=== PATIENT | female | born 1995 | race Caucasian/White ===

== ENCOUNTER 2024-09-23 14:53 | Outpatient (AMB) | payer BC, SELFPAY ==
--- NOTE | 2024-09-23 15:21 | OBCLNT_ITS ---
Vital Signs 09/23/24 15:28 09/23/24 15:36 Height 1.6 m Height Method Stated Weight 101.661 kg Weight Measurement Method Standing Scale BMI 39.6 BP 149/89 H 143/89 H Blood Pressure Source Automatic Cuff Automatic Cuff Blood Pressure Location Right Upper Arm Right Upper Arm Position Sitting Sitting Respiration 20 Pulse 83 Pulse Source Monitor Temp 98.6 F Temp Source Temporal Artery Scan Pulse Oximetry (%) 99 Oxygen Delivery Method Room Air Allergies/Home Meds Allergies & Medications Allergies No Known Allergies Allergy (Verified 09/23/24 15:30) Medication Reconciliation levothyroxine 50 mcg tablet (Synthroid) 50 mcg PO QDAY 09/23/24 [History Confirmed 09/23/24] ggujnqmi-pdg-eekrz 120 mcg-dha 25 mg-herb no.293 66.7 mg chew tablet (Alive Premium ) tab PO 09/23/24 [History Confirmed 09/23/24] ondansetron HCl 4 mg tablet 4 mg PO Q6H PRN nausea and vomiting #30 tabs 09/25/24 [Rx] Intake Visit Data Collection New Patient or Established: New Patient (never been to [facility]) Reason for Visit:: Initial OB visit Do You Feel Safe at Home: Yes Authorities Contacted: N/A PCP or OBGYN visit in last 3 months: Yes Last menstrual period: 07/05/24 Pain Present Currently: Yes Pain Location: Back Pain scale:: 5 Smoking Status Smoking Status: Never smoker Questionnaires Covid-19 Vaccine Questionnaire Has patient been vacinated for Covid-19 Have you been vacinated for Covid-19: Yes PHQ-9 PHQ-2 Over the last 2 weeks, how often have you been bothered by any of the following problems? 1. Little interest or pleasure in doing things: not at all 2. 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 turning 5 in 03/20 Tobacco History Smoking Status: Never smoker Alcohol History Alcohol Intake: Never Domestic Abuse History Do You Feel Safe at Home: Yes Past Medical History Past Medical History Have you ever been diagnosed with any of the following: Respiratory Problems Asthma: No Bronchitis: No Sleep Apnea: No Stomache/Intestinal Problems Gall Bladder Disease: Yes (History of multiple gallstones and gallbladder removed) Obesity: Yes Genital/Urinary Problems Kidney Stones: Yes (Multiple admissions for kidney stones last ) Reproductive Problems Breast Cancer: No Endometriosis: No Fibroids: No Genital Herpes: No Gonorrhea: No Pelvic Inflammatory Disease: No Polycystic Ovarian Syndrome: No Previous Pregnancies: Yes ( x 1 in February 2020 at 37 weeks for elevated blood pressure fe) Syphilis: No Uterine Prolapse: No Endocrine Problems Diabetes Mellitus Type 2: No Hypothyroidism: Yes (After partial thyroidectomy) Parathyroid Disease: Yes (Has had 1 or 2 parathyroid glands removed) Blood Problems Anemia: No Psychologic Problems Anxiety: Yes Other Problems Hospitalization: Yes (For , hyperemesis, gallstones, multiple kidney stones, PTH Dx) Surgical History Cholecystectomy: Yes Thyroidectomy: Yes (Partial) Additional Surgical History: and partial prior parathyroidectomy History of Present Illness HPI Narrative The patient is a 29-year-old -0-0-1 history of in 2019 who used to see me in [place]. The patient had a complicated first with hyperemesis requiring IV fluids. She had multiple admissions for gallstone attacks and kidney stone attacks. I ended up diagnosing her with parathyroid disease. She has since had some type of right parathyroidectomy. I have no reports today. She is on Synthroid 50 mcg a day labetalol 200 twice a day. She saw Sarah Reyes in [place] two weeks ago and I have no records. Dr. Haas is her thyroid doctor. She also was seeing a Dr. Faustin at [facility] who is some type of ENT and was going to perform type of some type of surgery. Patient is talking today in a very hoarse voice she states that one of her parathyroids is putting pressure on her esophagus. She states that her vocal cords are strained. They now do not want to do surgery until after her . The patient is only 12 weeks . OB Ultrasound Indication Indication: Size and dates, viability OB Ultrasound Ultrasound technique: transvaginal Gestational sac assessment: Presence, location, size, shape: Intrauterine with a crown-rump length of 6.09 cm corresponding to 12 weeks 4 days EDC of 04/05/2025 OB Initial Visit Menstrual History Menstrual reliability: definite Flow: heavy Menstrual regularity: regular Monthly: Yes Age at menarche: 13 On control pills at conception: No Date of positive home test: 08/20/24 OB History : 2 Para: 1 # of Living Children: 1 Delivery History 1st : Child's name: [email or web address] date: 03/25/20 sex: female Gestational age at delivery (weeks): 37 Delivery type: weight (lbs): 2721.554 g Delivery complications: Elevated blood pressure inability to get patient into labor History of depression before or after : No Infection History & Risk Evaluation History of STDs: none HIV risk evaluation: low risk Hepatitis B risk evaluation: low risk Patient or partner has history of Genital Herpes: No Varicella/chicken pox status: immunized Genetic Screening & History Genetic Screening/Teratology Counseling - Includes patient, baby's father, or anyone in either family with: 1. Patient's age 35 years or older as of estimated date of delivery: No 2. Thalassemia (Greenlandic, North Korean, Mediterranean, or Background); MCV less than 80: No 3. Neural Tube Defect (Meningomyelocele, Spina Bifida, or Anencephaly): No 4. Congenital Heart Defect: No 5. Down Syndrome: No 6. Wesly-Sachs (Ashkenazi Religion, Cajun, Haitian [place]is[place]): No 7. Quintin Disease (Ashkenazi Religion): No 8. Familial Dysautonomia (Ashkenazi Religion): No 9. Sickle Cell Disease or Trait (): No 10. Hemophilia or other blood disorders: No 11. Muscular Dystrophy: No 12. Cystic Fibrosis: No 13. Craighead's Chorea: No 14. Mental Retardation/Autism: No 15. Other inherited genetic or chromosomal disorder: No 16. Maternal Metabolic Disorder (EG,TYPE 1 Diabetes, PKU): No 17. Patient or baby's father had a child with defects not listed above: No 18. Recurrent loss or a stillbirth: No 19. Medications (including supplements, vitamins, herbs or otc drugs)/illicit/recreational drugs/alcohol since last menstrual period: No 20. Any other: No Infection History 1. Live with someone with TB or exposed to TB: No 2. Rash or viral illness since last menstrual period: No 3. Hepatitis B,C: No Other (see comments) Source: [employer] Exam General Limitations: physical limitation (Difficult speaking secondary to extreme hoarseness.) General Appearance: alert, cooperative, healthy appearing and well developed Neck Neck exam: Present normal inspection, full ROM and trachea midline Chest Chest inspection: Present normal inspection and symmetric chest wall rise Resp Respiratory exam: Present normal lung sounds bilaterally Card Cardiovascular exam: Present regular rate, normal rhythm and normal heart sounds Abdominal Abdominal exam: Present soft and normal bowel sounds Psych Psychiatric exam: Present normal affect and normal mood Skin Skin exam: Present warm, dry, intact and normal color Assessment & Plan Diagnosis / Problem List (1) : Status: Acute Qualifiers: Weeks of gestation: 12 weeks Qualified Code(s): Z3A.12 - 12 weeks gestation of Assessment and Plan: Patient will be comanaged with [facility]. Stat referral sent to Dr. Esparza in [place]. Patient is nauseous and Zofran sent (2) Hyperparathyroidism: Status: Acute Assessment and Plan: All labs checked. Patient has a an endocrine doctor and an ENT. Need to coordinate care with them. (3) Hypothyroidism affecting : Status: Acute Qualifiers: Trimester: first trimester Qualified Code(s): O99.281 - Endocrine, nutritional and metabolic diseases complicating , first trimester; E03.9 - Hypothyroidism, unspecified Assessment and Plan: All labs checked. Coordinate care with endocrine and ENT. Patient is on Synthroid 50 mg p.o. daily. (4) Chronic hypertension affecting : Status: Acute Assessment and Plan: Labetalol 200 twice daily. Patient taking blood pressure. Off work now for the remainder of due to her high her parathyroidism with compression of esophagus, her vocal cord dysfunction, and her chronic hypertension on medication. Additional Plan Follow Up: 4 Weeks Office Procedures OB Clinic LOC & Office Proc's Nursing/Assessment Patient Status: Initial/New Patient OB Clinic Nursing Assessment: BP Monitoring, Medication Reconciliation, Update PMH in EMR and Vital Signs OB Clinic Coordination of Care: Complex Care and Chronic Disease 1-5, Education Complex Pt/Fam, Consent,records obtained, informed consent, Lab and Imaging orders, Results/Orders obtained and Staff clarify orders New Patient Charge New Patient Point Assignment: [id number] New Patient Point Charge: OLIVER FILTER OPERATOR Level 4 ([id number])
[2024-09-23 15:28] VITALS: BP 149/89; PULSE 83; RESP 20; TEMP 37; O2SAT 99; BMI 39.6
[2024-09-23 15:36] VITALS: BP 143/89
== END 2024-09-23 17:02 | disposition home or self-care (01) ==
PROVIDERS: Supervising Provider Obstetrics & Gynecology; Visit Provider Obstetrics & Gynecology
DX: O09.291 Supervision of pregnancy with other poor reproductive or obstetric history, first trimester (principal); O09.891 Supervision of other high risk pregnancies, first trimester; Z3A.12 12 weeks gestation of pregnancy; O10.911 Unspecified pre-existing hypertension complicating pregnancy, first trimester; O34.219 Maternal care for unspecified type scar from previous cesarean delivery; O99.281 Endocrine, nutritional and metabolic diseases complicating pregnancy, first trimester; E89.0 Postprocedural hypothyroidism; E21.3 Hyperparathyroidism, unspecified; Z87.59 Personal history of other complications of pregnancy, childbirth and the puerperium; Z90.89 Acquired absence of other organs; Z79.890 Hormone replacement therapy
CPT/HCPCS: 99204; G0463

== ENCOUNTER 2024-10-20 10:54 | Outpatient (AMB) | payer BC, SELFPAY ==
[2024-10-20 11:43] VITALS: BP 116/72; PULSE 101; RESP 22; TEMP 36.7; O2SAT 97; BMI 39.2
--- NOTE | 2024-10-20 11:43 | AMB.OBVISIT ---
Vital Signs 10/20/24 11:43 Height 1.6 m Height Method Stated Weight 100.414 kg Weight Measurement Method Standing Scale BMI 39.2 BP 116/72 Blood Pressure Source Automatic Cuff Blood Pressure Location Right Upper Arm Position Sitting Respiration 22 H Pulse 101 H Pulse Source Monitor Temp 98.1 F Temp Source Oral Pulse Oximetry (%) 97 Oxygen Delivery Method Room Air Allergies/Home Meds Allergies & Medications Allergies No Known Allergies Allergy (Verified 10/20/24 11:44) Medication Reconciliation levothyroxine 50 mcg tablet (Synthroid) 50 mcg PO QDAY 09/23/24 [History Confirmed 10/20/24] iurerase-mwa-szzlg 120 mcg-dha 25 mg-herb no.293 66.7 mg chew tablet (Alive Premium ) tab PO 09/23/24 [History Confirmed 10/20/24] ondansetron HCl 4 mg tablet 4 mg PO Q6H PRN nausea and vomiting #30 tabs 09/25/24 [Rx Confirmed 10/20/24] ondansetron HCl 4 mg tablet 4 mg PO Q6H PRN nausea and vomiting #60 tabs 10/08/24 [Rx Confirmed 10/20/24] metronidazole 0.75 % (37.5 mg/5 gram) vaginal gel 1 appful vaginal QDAY 5 days #70 grams 10/20/24 [Rx] ondansetron 4 mg disintegrating tablet 4 mg PO Q6H PRN nausea and vomiting #90 tabs 10/20/24 [Rx] Intake Visit Data Collection New Patient or Established: Established Patient (seen at [facility] within 3 years) Reason for Visit:: CARE Seen by Clinical Staff ONLY (RN/MA): No Scrum Product Owner Required: No Do You Feel Safe at Home: Yes Authorities Contacted: N/A PCP or OBGYN visit in last 3 months: Yes Hx Now: Yes Are you currently on any form of Control: No Pain Present Currently: Yes Pain Location: Back Pain Scale Used: Ribeiro-Rowell/Numerical Pain scale:: 4 Smoking Status Smoking Status: Never smoker Questionnaires Covid-19 Vaccine Questionnaire Has patient been vacinated for Covid-19 Have you been vacinated for Covid-19: Yes PHQ-9 PHQ-2 Over the last 2 weeks, how often have you been bothered by any of the following problems? 1. Little interest or pleasure in doing things: not at all 2. Feeling down, depressed, or hopeless: not at all Total score: 0 PHQ-9 3. Trouble falling or staying asleep, or sleeping too much: Not at all 4. Feeling tired or having little energy: Not at all 5. Poor appetite or overeating: Not at all 6. Feeling bad about yourself - or that you are a failure or have let yourself or your family down: Not at all 7. Trouble concentrating on things, such as reading the newspaper or watching television: Not at all 8. Moving or speaking so slowly that other people could have noticed? - Or the opposite - being so fidgety or restless that you have been moving around a lot more than usual: not at all Source: Developed by Drs. Rafa Almaraz, Otilia Rea, Bello Jacques and colleagues, with an educational titi from [employer]. 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 turning 5 in 03/20 Tobacco History Smoking Status: Never smoker Alcohol History Alcohol Intake: Never Domestic Abuse History Do You Feel Safe at Home: Yes HEDGE FUND PRINCIPAL: Past Medical History Past Medical History: Yes Hx Hypothyroidism (After partial thyroidectomy), No Hx Breast Cancer, No Hx Anemia, No Hx Diabetes Mellitus Type 2 and No Hx Polycystic Ovarian Syndrome Additional Operations/Hospitalizations (year & reason): . Cholecystectomy.. Partial thyroidectomy. Parathyroidectomy. Other Relevant History: Anxiety. -induced hypertension. Chronic hypertension. Hypothyroidism. Parathyroid disease. Some type of weak vocal cord strain versus enlarged parathyroid causing the patient to be hoarse. Seeing a specialist at [facility] for her parathyroids. Seeing an corporate financial analyst for her thyroid and parathyroid condition. History of Present Illness HPI Narrative The patient is a 29-year-old -0-0-1 history of at 37 weeks in [place]. She is to be my patient. Her daughter is 5. She had a complicated with hyperemesis IV fluids. She had multiple admissions for gallstones and kidney stones. She eventually was diagnosed with a parathyroid disease by myself. She has since had a partial thyroidectomy and some of her parathyroid glands removed. I have no records today. She has had her gallbladder removed. She is seeing a specialist at [facility] for a parathyroid. She talks in a whisper and has a very hoarse voice. Something about her vocal cords being pulled apart. She is to have some type of parathyroid mass pushing in her esophagus per patient. Again I have no records. She has chronic hypertension. She is on labetalol. She needs to be comanaged with maternal- medicine. She is on Zofran ODT for nausea and vomiting Care OB Visit Log OB Flowsheet Initial Weight: Not Recorded Date <del>?</del> EGA Weight BP Alb Glu CTX Pres Fundal ht FHR Mov Dilation Station Effacement Hx Notes Visit Note 10/20/24 <del>?</del> 16w 3d 100.414 kg 116/72 155 active Patient needs a refill on Zofran. She is on labetalol 200 twice daily for blood pressure. And states most of her blood pressures are in the normal range. She is off work on bedrest. She has not received an appointment for Dr. Esparza for maternal- medicine. She states she is called and this is getting authorized. Plus flutter. No vaginal bleeding or loss of fluids. Patient is still speaking with a quiet hoarse voice today. WAYNE Calculator Estimated Delivery Date Method Current WG Current Estimate 04/03/25 Ultrasound #1 16w 3d Other Estimates 04/11/25 LMP (Uncertain) 15w 2d Expected Delivery Route/Plan 29-year-old -0-0-1 previous x 1 for repeat Specific Issue/Plans 1. Previous for repeat 2. Hypothyroid secondary to partial thyroidectomy on medication 3. History of hyperparathyroidism status post removal of some of her parathyroid glands. Sees a specialist at [facility]. May need further surgery this . Parathyroid, calcium, phosphorous, thyroid numbers are normal at the beginning of this . 4. Chronic hypertension. On labetalol 200 mg p.o. twice daily at 14 weeks of . Office Procedures OB Clinic LOC & Office Proc's Nursing/Assessment Patient Status: Established Patient OB Clinic Nursing Assessment: Medication Reconciliation, Update PMH in EMR and Vital Signs OB Clinic Coordination of Care: Complex Care and Chronic Disease 1-5, Consent,records obtained, informed consent, Education Simp Pt/Fam, Lab and Imaging orders, Results/Orders obtained and Staff clarify orders Special Needs: Heart tones Established Patient Charge Established Patient Point Assignment: 135 Established Patient Point Charge: EP Level 4 (120-155) Assessment & Plan Diagnosis / Problem List (1) : Status: Acute Qualifiers: Weeks of gestation: 16 weeks Qualified Code(s): Z3A.16 - 16 weeks gestation of Assessment and Plan: Patient reports vaginal odor and discharge. History of BV. Will order MetroGel. For MFM referral. And comanagement. Need to get a hold of all her labs. (2) Chronic hypertension affecting : Status: Acute Assessment and Plan: Continue labetalol 200 twice daily (3) Hypothyroidism affecting : Status: Acute Qualifiers: Trimester: second trimester Qualified Code(s): O99.282 - Endocrine, nutritional and metabolic diseases complicating , second trimester; E03.9 - Hypothyroidism, unspecified Assessment and Plan: Continue Synthroid (4) Hyperparathyroidism: Status: Acute Assessment and Plan: Continue to follow-up with [facility] doctors sees her corporate financial analyst later this week.
== END 2024-10-20 12:05 | disposition home or self-care (01) ==
LOC: HODSOBC 10:54
PROVIDERS: Supervising Provider Obstetrics & Gynecology; Visit Provider Obstetrics & Gynecology
DX: O09.292 Supervision of pregnancy with other poor reproductive or obstetric history, second trimester (principal); O09.892 Supervision of other high risk pregnancies, second trimester; Z3A.16 16 weeks gestation of pregnancy; O34.219 Maternal care for unspecified type scar from previous cesarean delivery; O10.912 Unspecified pre-existing hypertension complicating pregnancy, second trimester; O99.282 Endocrine, nutritional and metabolic diseases complicating pregnancy, second trimester; E21.3 Hyperparathyroidism, unspecified; E89.0 Postprocedural hypothyroidism; Z79.899 Other long term (current) drug therapy
CPT/HCPCS: 99214; G0463

== ENCOUNTER 2024-10-28 14:56 | Outpatient (AMB) | payer BC, SELFPAY ==
[2024-10-28 15:14] VITALS: BP 130/85; PULSE 92; RESP 17; TEMP 36.8; O2SAT 98; BMI 39.4
--- NOTE | 2024-10-28 15:16 | OBCLNT_ITS ---
Vital Signs 10/28/24 15:14 10/28/24 15:18 Height 1.6 m Height Method Stated Weight 100.868 kg Weight Measurement Method Standing Scale BMI 39.4 BP 130/85 H 130/85 H Blood Pressure Source Automatic Cuff Blood Pressure Location Right Upper Arm Position Sitting Respiration 17 17 Pulse 92 92 Pulse Source Monitor Temp 98.2 F 98.2 F Temp Source Temporal Artery Scan Pulse Oximetry (%) 98 98 Oxygen Delivery Method Room Air Allergies/Home Meds Allergies & Medications Allergies No Known Allergies Allergy (Verified 10/28/24 15:15) Medication Reconciliation levothyroxine 50 mcg tablet (Synthroid) 50 mcg PO QDAY 09/23/24 [History Confirmed 10/28/24] cyonozro-wxs-eytmv 120 mcg-dha 25 mg-herb no.293 66.7 mg chew tablet (Alive Premium ) tab PO 09/23/24 [History Confirmed 10/28/24] ondansetron HCl 4 mg tablet 4 mg PO Q6H PRN nausea and vomiting #30 tabs 09/25/24 [Rx Confirmed 10/28/24] ondansetron HCl 4 mg tablet 4 mg PO Q6H PRN nausea and vomiting #60 tabs 10/08/24 [Rx Confirmed 10/28/24] ondansetron 4 mg disintegrating tablet 4 mg PO Q6H PRN nausea and vomiting #90 tabs 10/20/24 [Rx Confirmed 10/28/24] Intake Visit Data Collection New Patient or Established: Established Patient (seen at [facility] within 3 years) Reason for Visit:: ER FOLLOW UP Seen by Clinical Staff ONLY (RN/MA): No Solid Waste Collector Required: No Do You Feel Safe at Home: Yes Authorities Contacted: N/A PCP or OBGYN visit in last 3 months: Yes Hx Now: Yes Are you currently on any form of Control: No Pain Present Currently: Yes Pain Location: Back Pain Scale Used: Ribeiro-Rowell/Numerical Pain scale:: 4 Smoking Status Smoking Status: Never smoker Questionnaires Covid-19 Vaccine Questionnaire Has patient been vacinated for Covid-19 Have you been vacinated for Covid-19: Yes PHQ-9 PHQ-2 Over the last 2 weeks, how often have you been bothered by any of the following problems? 1. Little interest or pleasure in doing things: not at all 2. Feeling down, depressed, or hopeless: not at all Total score: 0 PHQ-9 3. Trouble falling or staying asleep, or sleeping too much: Not at all 4. Feeling tired or having little energy: Not at all 5. Poor appetite or overeating: Not at all 6. Feeling bad about yourself - or that you are a failure or have let yourself or your family down: Not at all 7. Trouble concentrating on things, such as reading the newspaper or watching television: Not at all 8. Moving or speaking so slowly that other people could have noticed? - Or the opposite - being so fidgety or restless that you have been moving around a lot more than usual: not at all 9. Thoughts that you would be better off or of hurting yourself in some way: Not at all Total score: 0 If you checked off any problems, how difficult have these problems made it for you to do your work, take care of things at home, or get along with other people?: not difficult at all Source: Developed by Drs. Rafa Almaraz, Otilia Rea, Bello Jacques and colleagues, with an educational titi from [employer]. 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 turning 5 in 03/20 Tobacco History Smoking Status: Never smoker Alcohol History Alcohol Intake: Never Domestic Abuse History Do You Feel Safe at Home: Yes CLINICAL ADMINISTRATIVE COORDINATOR: Past Medical History Past Medical History: Yes Hx Hypothyroidism (After partial thyroidectomy), No Hx Breast Cancer, No Hx Anemia, No Hx Diabetes Mellitus Type 2 and No Hx Polycystic Ovarian Syndrome Care OB Visit Log OB Flowsheet Initial Weight: Not Recorded Date -?-?-?-?-?-?-?-?-?-?-?-?- EGA Weight BP Alb Glu CTX Pres Fundal ht FHR Mov Dilation Station Effacement Hx Notes Visit Note 10/20/24 -?-?-?-?-?-?-?-?-?-?-?-?- 16w 3d 100.414 kg 116/72 155 active Patient needs a refill on Zofran. She is on labetalol 200 twice daily for blood pressure. And states most of her blood pressures are in the normal range. She is off work on bedrest. She has not received an appointment for Dr. Esparza for maternal- medicine. She states she is called and this is getting authorized. Plus flutter. No vaginal bleeding or loss of fluids. Patient is still speaking with a quiet hoarse voice today. 10/28/24 -?-?-?-?-?-?-?-?-?--?-?-?- 17w 4d 100.868 kg 130/85 130/85 143 active Nausea vom iting better. Blood pressure better on labetalol. Patient states she is leaking. Went to [place] and did not get any answers. Sent to ER to ru le out ruptured membranes. Need AmniSure and vaginitis panel. WAYNE Calculator Estimated Delivery Date Method Current WG Current Estimate 04/03/25 Ultrasound #1 17w 4d Other Estimates 04/11/25 LMP (Uncertain) 16w 3d Comments: LMP 07/05/23 Expected Delivery Route/Plan 29-year-old -0-0-1 previous x 1 for repeat Specific Issue/Plans 1. Previous for repeat 2. Hypothyroid secondary to partial thyroidectomy on medication 3. History of hyperparathyroidism status post removal of some of her parathyroid glands. Sees a specialist at [facility]. May need further surgery this . Parathyroid, calcium, phosphorous, thyroid numbers are normal at the beginning of this . 4. Chronic hypertension. On labetalol 200 mg p.o. twice daily at 14 weeks of . Office Procedures OB Clinic LOC & Office Proc's Nursing/Assessment Patient Status: Established Patient OB Clinic Nursing Assessment: Medication Reconciliation, Update PMH in EMR and Vital Signs OB Clinic Coordination of Care: Complex Care and Chronic Disease 1-5, Consent,records obtained, informed consent, Education Simp Pt/Fam, Results/Orders obtained and Staff clarify orders Special Needs: Heart tones Established Patient Charge Established Patient Point Assignment: 120 Established Patient Point Charge: EP Level 4 (120-155) Assessment & Plan Diagnosis / Problem List (1) Chronic hypertension affecting : Status: Acute (2) Hypothyroidism affecting : Status: Acute Qualifiers: Trimester: second trimester Qualified Code(s): O99.282 - Endocrine, nutritional and metabolic diseases complicating , second trimester; E03.9 - Hypothyroidism, unspecified (3) Hyperparathyroidism: Status: Acute (4) : Status: Acute Qualifiers: Weeks of gestation: 17 weeks Qualified Code(s): Z3A.17 - 17 weeks gestation of
[2024-10-28 15:18] VITALS: BP 130/85; PULSE 92; RESP 17; TEMP 36.8; O2SAT 98
== END 2024-10-28 16:18 | disposition home or self-care (01) ==
LOC: HODSOBC 14:56
PROVIDERS: PCP Obstetrics & Gynecology; Referring Provider Obstetrics & Gynecology; Supervising Provider Obstetrics & Gynecology; Visit Provider Obstetrics & Gynecology
DX: O09.292 Supervision of pregnancy with other poor reproductive or obstetric history, second trimester (principal); O34.219 Maternal care for unspecified type scar from previous cesarean delivery; O09.892 Supervision of other high risk pregnancies, second trimester; O10.912 Unspecified pre-existing hypertension complicating pregnancy, second trimester; O99.282 Endocrine, nutritional and metabolic diseases complicating pregnancy, second trimester; E21.3 Hyperparathyroidism, unspecified; E89.0 Postprocedural hypothyroidism; Z3A.17 17 weeks gestation of pregnancy; Z79.890 Hormone replacement therapy; Z79.899 Other long term (current) drug therapy
CPT/HCPCS: 99214; G0463

== ENCOUNTER 2024-10-28 15:58 | Emergency (ER) | payer BC, SELFPAY ==
[2024-10-28 16:10] VITALS: BP 146/94; PULSE 110; RESP 20; TEMP 36.9; O2SAT 99; BMI 39.3
--- NOTE | 2024-10-28 16:19 | XR_ITS ---
Examination: Complete OB ultrasound greater than 14 weeks Date and time of exam: October 28, 2024 1637 hours INDICATIONS: Leaking amniotic fluid beginning 2 days ago Findings: Viable intrauterine single fetus with single amniotic sac presentation variable Cardiac motion 158 BPM Placenta posterior grade 2 The umbilical cord insertion seen Amniotic fluid index 10.7 cm Lateral view obscured by bowel gas Left ovary 3.6 cm arterial flow. Composite estimated gestational age based on BPD, head circumference, abdominal circumference, femur length is 18 weeks 1 day Estimated weight 229 g. Survey of intracranial anatomy, spinal anatomy, abdominal anatomy, four-chamber heart performed with no abnormalities identified. Impression: Viable intrauterine gestation variable presentation Estimated gestational age 18 weeks 1 day. Amniotic fluid index 10.7 cm.
[2024-10-28 16:34] LABS: Collection Type, Urine Clean Catch
[2024-10-28 16:42] LABS: Basophils % (Auto) 0 % (0-2.5); Eosinophils # (Auto) 0.1 Thou/mm3 (0.0-0.5); Eosinophils % (Auto) 1 % (0-10); Hematocrit 34.1 % (36.0-46.0); Hemoglobin 12.3 g/dL (12.0-16.0); Immature Granulocytes % (Auto) 0 % (0-0); Immature Granulocytes Auto 0.02 Thou/mm3 (0.00-0.00); Lymphocytes % (Auto) 25 % (10-50); Mean Corpuscular HGB Conc 36.1 g/dl (31.0-37.0); Mean Corpuscular Hemoglobin 31.5 pg (25.0-35.0); Mean Corpuscular Volume 87 fL (80-100); Monocytes # (Auto) 0.5 Thou/mm3 (0.0-0.8); Monocytes % (Auto) 6 % (0-12); Neutrophils # (Auto) 5.5 Thou/mm3 (1.8-7.7); Neutrophils % (Auto) 68 % (37-80); Nucleated Red Blood Cell % 0 /100 WBC (0); Platelet Count 276 Thou/mm3 (140-440); RDW Standard Deviation 40.8 fL (36.4-46.3); White Blood Count 8.2 Thou/mm3 (3.6-11.0)
[2024-10-28 16:47] LABS: Bilirubin,Urine Negative (Negative); Blood,Urine Negative (Negative); Color,Urine Yellow (Lt Yel-Yel); Glucose, Urine Trace (Negative); Ketones,Urine Trace (Negative); Leukocyte Esterase,Urine Positive (Negative); Nitrite,Urine Negative (Negative); PH,Urine 6.5 (5.0-7.0); Protein,Urine Trace (Neg - Trace); RBC,Urine 5 /hpf (0-3); Specific Gravity,Urine 1.026 (1.001-1.035); Squamous Epithelial Cell,Urine 7 /hpf (0-5); WBC,Urine 14 /hpf (0-5)
[2024-10-28 16:59] LABS: Clarity,Urine Hazy (Clear/Hazy)
[2024-10-28 17:54] LABS: Alanine Aminotransferase 92 U/L (10-49); Albumin, Serum 4.4 gm/dL (3.5-5.0); Albumin/Globulin Ratio 2.1 (1.2-2.2); Alkaline Phosphatase 65 U/L (46-116); Anion Gap 13 (7-16); Aspartate Amino Transferase 64 U/L (0-34); BUN/Creatinine Ratio 17 Ratio (12-20); Beta HCG,Quantitative 17099 mIU/mL (<5.0); Bilirubin,Total 0.3 mg/dL (0.3-1.2); Blood Urea Nitrogen 10 mg/dL (9-23); Calcium 8.6 mg/dL (8.3-10.6); Calcium (Corrected) 8.6 mg/dL (8.5-10.1); Chloride 106 mMol/L (98-107); Creatinine (Component) 0.6 mg/dL (0.6-1.3); Estimated Creatinine Clearance 156.6 mL/min (>60); Globulin 2.1 gm/dL (2.3-3.5); Glucose 75 mg/dL (74-106); Osmolality,Calculated 282 (275-295); Potassium 3.8 mMol/L (3.4-5.1); Sodium 143 mMol/L (136-145); Total Protein 6.5 gm/dL (5.7-8.2); eGFR > 60 See Note
[2024-10-28 18:08] LABS: ROM Kit Lot # 578010271
[2024-10-28 18:09] LABS: ROM Swab Mixed By: SAUET; Rupture of Fetal Membranes Negative (Negative); Swb Mxed in Solvent 1 min? Yes
--- NOTE | 2024-10-28 18:37 | PD.GYNCONS ---
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 Casas Primary Care Provider: Physician No Primary/Family Consult Narrative Reason for consult: early complication (Possible ruptured membranes) History of present illness: The patient is a 29-year-old -0-0-1 at 17-5/7 weeks who was seen at clinic today. She thought she might have ruptured her membranes and actually went to the [facility] emergency room yesterday on 10/27/2024. They did not do an AmniSure or a pelvic exam but they did an ultrasound and told her the fluid was normal . I do not have any records. As the patient was still reporting leaking fluid today and she is under 20 weeks I sent her to the emergency room to get evaluated. In the emergency room, the patient had an ultrasound performed revealing the amniotic fluid index to be 10.7 ,cardiac motion was noted and the placenta was posterior and away from the cervical os. Two labor and delivery nurses came down to see the patient and performed an AmniSure and a vaginal swab for vaginitis. The AmniSure is negative. We will be discharging the patient home. cc:: cc: Review of Systems Review of Systems Systems Reviewed: All systems reviewed, normal except as documented Narrative Review of Systems: Patient reports good movement no contractions or cramping no vaginal bleeding. She is reporting leaking of clearish type fluid for about 2 days. No fevers chills nausea vomiting diarrhea. Past Medical History Past Medical History GASTROINTESTINAL: Positive Gall Bladder Disease (History of gallstones) GENITOURINARY: Positive Renal Disease and Kidney Stones (Episodes of kidney stones in the past) REPRODUCTIVE: Positive Previous Pregnancies ( x 1) ENDOCRINE: Positive Hypothyroidism (Status post partial thyroidectomy) and Parathyroid Disease (Status post post removal of parathyroid glands) Surgical History SURGICAL: Positive Endocrine Surgery (Parathyroidectomy), Thyroidectomy (Partial thyroidectomy), Abdominal Surgery ( section x 1) and Hx Cholecystectomy Past Medical History Comments PMH COMMENT: Patient is worse from some type of vocal cord strain from parathyroid surgery in past. She is being followed by an ENT at [facility] and an primary care physician as an outpatient. 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 Speculum exam was performed revealing yellowish discharge with no odor. Speculum exam not suggestive of ruptured membranes AmniSure performed. Vaginitis panel collected. Cervix appears closed pelvic exam deferred Detailed Pelvic Exam Uterus: Present enlarged (20-week size) Routine Extremities Exam Extremities: Present edema (1+ edema) [employer]LE[employer]IV[employer]ITY REGISTRAR - Results Labs 10/28/24 16:32 10/28/24 16:32 Labs: Short CBC 10/28/24 Range/Units 16:32 WBC 8.2 (3.6-11.0) Thou/mm3 Hgb 12.3 (12.0-16.0) g/dL Hct 34.1 L (36.0-46.0) % Plt Count 276 (140-440) Thou/mm3 BMP 10/28/24 16:32 Sodium 143 Potassium 3.8 Chloride 106 Carbon Dioxide 24.0 BUN 10 Creatinine 0.6 Glucose 75 Calcium 8.6 Liver Function 10/28/24 Range/Units 16:32 Total Bilirubin 0.3 (0.3-1.2) mg/dL AST 64 H (0-34) U/L ALT 92 H (10-49) U/L Alkaline Phosphatase 65 (46-116) U/L Albumin 4.4 (3.5-5.0) gm/dL Urine 10/28/24 Range/Units 16:24 Urine Color Yellow (Lt Yel-Yel) Urine Clarity Hazy (Clear/Hazy) Urine pH 6.5 (5.0-7.0) Ur Specific [place] 1.026 (1.001-1.035) Urine Protein Trace (Neg - Trace) Urine Glucose (UA) Trace (Negative) Imaging and Cardiology US - abdomen: Additional comments: Abdominal ultrasound reveals viable intrauterine in variable presentation cardiac motion 158 bpm placenta is posterior grade 2 amniotic fluid index 10.7. EFW 229 g corresponding to 18 weeks 1 day. Assessment and Plan Assessment and plan (1) Chronic hypertension affecting : Status: Acute Assessment and plan: Continue labetalol (2) Hypothyroidism affecting : Status: Acute Assessment and plan: Continue Synthroid follow-up with endocrine (3) Hyperparathyroidism: Status: Acute Assessment and plan: Follow-up with ENT at [facility] (4) : Status: Acute Assessment and plan: Ruptured membranes ruled out today. Await vaginitis panel. Discharge home. Follow-up in 4 weeks. (2) Hypothyroidism affecting Qualifiers: Trimester: second trimester Qualified Code(s): O99.282 - Endocrine, nutritional and metabolic diseases complicating , second trimester; E03.9 - Hypothyroidism, unspecified (4) Qualifiers: Weeks of gestation: 17 weeks Qualified Code(s): Z3A.17 - 17 weeks gestation of
[2024-10-28 18:49] VITALS: BP 136/86; PULSE 81; RESP 14; O2SAT 98
--- NOTE | 2024-10-28 19:08 | EDNOTE_ITS ---
ED General RME/HPI General Chief complaint: General Adult/Misc Complain Stated complaint: Sent from OB, leaking fluid 17wk 4d Time Seen by Provider: 10/28/24 18:20 Arrival date/time: 10/28/24 15:58 Dr. Casas?s Main ED Evaluation: 29-year-old female about 18 weeks presents to the emergency department with leakage of vaginal fluid. Patient began leaking fluid yesterday. She went to [facility] and had an ultrasound. She was told that the amniotic fluid was a little low but otherwise everything was normal. She was told to come back if she continues to leak fluid. Rather than that the patient called her doctor, Dr Morel. Dr. Morel sent her to the emergency department for blood work, urine and ultrasound. Patient is complaining of mild lower back pain but does not know her chronic back pain or new. She has no pelvic cramping type menstrual pain. No vaginal bleeding. Related Data Home Medications ?Medication ?Instructions ?Recorded ?Confirmed levothyroxine 50 mcg tablet 50 mcg PO QDAY 09/23/24 (Synthroid) [id number] 120 mcg-dha 25 tab PO 09/23/2409/18 mg-herb no.293 66.7 mg chew tablet (Alive Premium ) Previous Rx's ?Medication ?Instructions ?Recorded ondansetron HCl 4 mg tablet 4 mg PO Q6H PRN nausea and 09/25/24 vomiting #30 tabs ondansetron HCl 4 mg tablet 4 mg PO Q6H PRN nausea and 10/08/24 vomiting #60 tabs ondansetron 4 mg disintegrating 4 mg PO Q6H PRN nausea and 10/20/24 tablet vomiting #90 tabs nitrofurantoin macrocrystal 100 mg 100 mg PO BID Urina ry tract 10/28/24 capsule infection 7 days #14 caps Allergies Allergy/AdvReac Type Severity Reaction Status Date / Time No Known Allergies Allergy Verified 10/28/24 15:15 Review of Systems Review of Systems Systems Reviewed: All systems reviewed, normal except as documented Past Medical History Past Medical History CARDIAC: Negative Congestive Heart Failure RESPIRATORY: Negative Chronic Obstructive Pulmonary Disease (COPD), Asthma, Br onchitis or Sleep Apnea GASTROINTESTINAL: Positive Gall Bladder Disease (History of gallstones) and Obesity GENITOURINARY: Positive Renal Disease and Kidney Stones (Episodes of kidney stones in the past) REPRODUCTIVE: Positive Previous Pregnancies ( x 1); Negative Breast Cancer, Endometriosis, Fibroids, Genital Herpes, Gonorrhea, Pelvic Inflammatory Disease, Hx Polycystic Ovarian Syndrome, Syphilis or Uterine Prolapse ENDOCRINE: Positive Hypothyroidism (Status post partial thyroidectomy) and Parathyroid Disease (Status post post removal of parathyroid glands); Negative Diabetes Mellitus Type 1 or Diabetes Mellitus Type 2 HEMATOLOGIC: Negative Anemia PSYCHO/SOCIAL: Positive Anxiety OTHER HISTORY: Positive Hospitalization (For , hyperemesis, gallstones, multiple kidney stones, PTH Dx); Negative Breast Cancer Surgical History SURGICAL: Positive Endocrine Surgery (Parathyroidectomy), Thyroidectomy (Partial thyroidectomy), Tonsillectomy, Abdominal Surgery ( section x 1) and Hx Cholecystectomy Social History SMOKING STATUS: Never smoker Past Medical History Comments PMH COMMENT: Patient is worse from some type of vocal cord strain from parathyroid surgery in past. 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 ED Exam Narrative Physical exam: GENERAL APPEARANCE: alert and oriented x 4, well-developed, well-nourished, no acute distress VITALS: All vitals were reviewed and the pulse ox is 98% on room air, which is normal according to my interpretation. HEENT: Normocephalic, atraumatic; pupils equal, round, reactive to light; EOMI; mucous membranes pink, moist; oropharynx clear NECK: Supple LUNGS: CTABL; no wheezes, no rales, no rhonchi HEART: Regular rate, regular rhythm; normal S1, S2; no murmurs ABDOMEN: non distended; soft, gravid, no tenderness, no guarding, no rebound; no masses, no organomegaly, no hernia PELVIC: not performed. BACK: no CVA tenderness EXTREMITIES: atraumatic; no edema NEUROLOGIC: awake; alert and oriented x4; cranial nerves II-XII grossly intact; no focal sensory or motor deficits PSYCHIATRIC: appropriate mood and affect SKIN: warm, dry, normal color; no rashes Course Quality Measures none Orders Category Date Time Status US OB >= 14 weeks Fetus Stat Exams 10/28/24 16:19 Completed ABO/RH Type Stat Lab 10/28/24 16:32 Completed Bacterial Vaginal Panel Stat Lab 10/28/24 18:00 Received Beta HCG,Quantitative Stat Lab 10/28/24 16:32 Completed CBC Stat Lab 06/04/25 16:32 Completed Comprehensive Metabolic Panel Stat Lab 10/28/24 16:32 Completed Rupture of Membranes Stat Lab 10/28/24 18:00 Completed UA [Urinalysis] Stat Lab 10/28/24 16:24 Completed Urine Culture Stat Lab 10/28/24 16:24 Received cefTRIAXone [Rocephin] 1,000 mg Med 10/28/24 19:18 Discontinued Lidocaine 1% 20 ml [Xylocaine 1% 20 ML] 2.1 ml IM X1 cefTRIAXone/D5w 1gm IV premix [Rocephin/D5w 1gm IV Med 10/28/24 19:04 Discontinued premix] 1 gm in 50 ml IV X1 Vital Signs Vital signs: Vital Signs Temperature 98.4 F 10/28/24 16:10 Pulse Rate 110 H 10/28/24 16:10 Respiratory Rate 20 10/28/24 16:10 Blood Pressure 146/94 H 10/28/24 16:10 Pulse Oximetry (%) 99 10/28/24 16:10 Oxygen Delivery Method Room Air 10/28/24 16:10 Discharge Plan Plan Patient Disposition: HOME (Self Care) Discharge Disposition comment: Stable for discharge home Patient condition on transfer: Stable Prescriptions/Referrals Prescriptions/Med Rec: New nitrofurantoin macrocrystal 100 mg capsule 100 mg PO BID 7 Days Qty: 14 0RF Rx Instructions: must administer with a meal/food No Action Alive Premium 120 mcg-25 mg- 66.7 mg tablet,chewable PO levothyroxine [Synthroid] 50 mcg tablet 50 mcg PO QDAY ondansetron HCl 4 mg tablet 4 mg PO Q6H PRN (Reason: nausea and vomiting) Qty: 30 4RF ondansetron 4 mg tablet,disintegrating 4 mg PO Q6H PRN (Reason: nausea and vomiting) Qty: 90 2RF ondansetron HCl 4 mg tablet 4 mg PO Q6H PRN (Reason: nausea and vomiting) Qty: 60 3RF Referrals: Adriel (OB Clinic)Lashay MD [Physician] - 10/29/24 Problem List Clinical Impression: , Urinary tract infection Patient/Caregiver Discharge Instructions Discharge Activity: activity as tolerated Education Materials: Urinary Tract Infections in Women Additional Instructions: Today you were seen in the emergency department for possible leakage of amniotic fluid. When the OB nurses came down they performed a special test called an AmniSure test. This showed that you are not leaking amniotic fluid. Your blood tests were all reassuring, your urine showed a urinary tract infection. You will need to take an antibiotic called nitrofurantoin twice per day for 7 days for that. Have called that prescription into your pharmacy. Dr Morel would like to see you in her office tomorrow. Please call her office in the morning. Please return to the emergency department if you have any worsening or any further medical problems we will help you. Print Language: Tajik Stand Alone Forms: [employer] Award Info., Patient Portal Info Letter MDM Narrative [facility] hospital course: 19:[address] Morel with results of the patient's workup. She says that she sent her OB nurses down and they did an AmniSure test and the patient has not leaking amniotic fluid. Dr Morel said that the patient can be discharged and follow-up in her office tomorrow. Urinalysis shows mild UTI. I treated with 1 g Rocephin here in the emergency department and will write for Macrobid for 7 days at home. Clinical Information Provided by patient Medical Records Reviewed [facility] (Per chart review, patient had an outpatient visit with her OB this afternoon.) Meds/Rx Considered, not Ordered None Labs/Rad/Tests considered, not Ordered None Chronic Illness/Social Conditions which may negatively complicate care or outcome(s)-explain: None or not applicable EKG EKG not done Lab Interpretation Labs: interpreted by me and see narrative above Lab(s) interpretation(s): CBC normal, CMP normal, UA shows UTI. Imaging Imaging interpretation: interpreted by me Radiology reports / interpretation(s): [place] [facility] Report Signed Patient: NYASIA TORRES [facility]. Record#: [id number] Birthdate: 1995 Age/Sex: 29 / F Location: [facility] Attending Dr: Ordering Physician: John (LAURIE)Richar NP Date of Service: 10/28/24 Procedure(s): US OB >= 14 weeks Fetus Accession Number(s): [id number] cc: John SOTO)Richar NP; Benjamin Pulido MD; NO PRIMARY/FAMILY,PHYSICIAN~ Examination: Complete OB ultrasound greater than 14 weeks Date and time of exam: October 28, 2024 1637 hours INDICATIONS: Leaking amniotic fluid beginning 2 days ago Findings: Viable intrauterine single fetus with single amniotic sac presentation variable Cardiac motion 158 BPM Placenta posterior grade 2 The umbilical cord insertion seen Amniotic fluid index 10.7 cm Lateral view obscured by bowel gas Left ovary 3.6 cm arterial flow. Composite estimated gestational age based on BPD, head circumference, abdominal circumference, femur length is 18 weeks 1 day Estimated weight 229 g. Survey of intracranial anatomy, spinal anatomy, abdominal anatomy, four-chamber heart performed with no abnormalities identified. Impression: Viable intrauterine gestation variable presentation Estimated gestational age 18 weeks 1 day. Amniotic fluid index 10.7 cm. Dictated By: Benjamin Pulido MD Signed By: <Electronically signed by Benjamin Pulido MD in OV> 10/28/24 1724 Medication Administration(s) Medication Administration History Discontinued Medications Ceftriaxone Sodium 1,000 mg/ (Lidocaine HCl 2.1 ml) 0 mg IM X1 ONE Stop: 10/28/24 19:19 Last Admin: 10/28/24 19:41 Dose: 1,000 mg Documented By: CB Ceftriaxone Sodium/Dextrose (Rocephin/D5w 1gm Iv Premix) 1 gm in 50 mls @ 100 mls/hr IV X1 ONE Stop: 10/28/24 19:33 see above Diagnosis Differential diagnosis: demise, premature rupture of membranes, vaginitis Most likely dx, and/or detailed dx discussion: , UTI Dispositon Disposition: Discharge Home
[2024-10-28] MEDS: cefTRIAXone 1,000 MG, LIDOCAINE 1% 20 ML 2.1 ML IM (19:41)
== END 2024-10-28 19:53 | disposition home or self-care (01) ==
PROVIDERS: Nurse Practitioner Primary Care; Emergency Provider Emergency Medicine
DX: N39.0 Urinary tract infection, site not specified (principal); O23.42 Unspecified infection of urinary tract in pregnancy, second trimester; Z3A.18 18 weeks gestation of pregnancy
CPT/HCPCS: 36415; 76805; 80053; 81001; 81514; 84112; 84702; 85025; 86900; 86901; 87086; 96372; 99284; J0696; J3490

== ENCOUNTER 2024-11-09 09:02 | Outpatient (AMB) | payer BC, SELFPAY ==
[2024-11-09 09:42] VITALS: BP 138/85; PULSE 114; RESP 18; TEMP 36; O2SAT 98; BMI 39.5
--- NOTE | 2024-11-09 09:42 | AMB.OBVISIT ---
Vital Signs 11/09/24 09:42 Height 1.6 m Height Method Stated Weight 101.151 kg Weight Measurement Method Standing Scale BMI 39.5 BP 138/85 H Blood Pressure Source Automatic Cuff Blood Pressure Location Left Upper Arm Position Sitting Respiration 18 Pulse 114 H Pulse Source Monitor Temp 96.8 F Temp Source Oral Pulse Oximetry (%) 98 Oxygen Delivery Method Room Air Allergies/Home Meds Allergies & Medications Allergies No Known Allergies Allergy (Verified 11/09/24 09:43) Medication Reconciliation levothyroxine 50 mcg tablet (Synthroid) 50 mcg PO QDAY 09/23/24 [History Confirmed 11/09/24] zosxnozn-cdo-gqipp 120 mcg-dha 25 mg-herb no.293 66.7 mg chew tablet (Alive Premium ) tab PO 09/23/24 [History Confirmed 11/09/24] ondansetron HCl 4 mg tablet 4 mg PO Q6H PRN nausea and vomiting #30 tabs 09/25/24 [Rx Confirmed 11/09/24] ondansetron HCl 4 mg tablet 4 mg PO Q6H PRN nausea and vomiting #60 tabs 10/08/24 [Rx Confirmed 11/09/24] ondansetron 4 mg disintegrating tablet 4 mg PO Q6H PRN nausea and vomiting #90 tabs 10/20/24 [Rx Confirmed 11/09/24] ondansetron 4 mg disintegrating tablet 4 mg PO Q6H PRN nausea and vomiting #90 tabs 11/04/24 [Rx Confirmed 11/09/24] Intake Visit Data Collection New Patient or Established: Established Patient (seen at [facility] within 3 years) Reason for Visit:: OBC Seen by Clinical Staff ONLY (RN/MA): No Risk Control Specialist Required: No Do You Feel Safe at Home: Yes Authorities Contacted: N/A PCP or OBGYN visit in last 3 months: Yes Date of Last PCP or OBGYN visit: 10/28/24 Hx Now: Yes Are you currently on any form of Control: No Pain Present Currently: No Pain Scale Used: Ribeiro-Rowell/Numerical Pain scale:: 0 Smoking Status Smoking Status: Never smoker Questionnaires Covid-19 Vaccine Questionnaire Has patient been vacinated for Covid-19 Have you been vacinated for Covid-19: Yes PHQ-9 PHQ-2 Over the last 2 weeks, how often have you been bothered by any of the following problems? 1. Little interest or pleasure in doing things: not at all 2. Feeling down, depressed, or hopeless: not at all Total score: 0 PHQ-9 3. Trouble falling or staying asleep, or sleeping too much: Not at all 4. Feeling tired or having little energy: Not at all 5. Poor appetite or overeating: Not at all 6. Feeling bad about yourself - or that you are a failure or have let yourself or your family down: Not at all 7. Trouble concentrating on things, such as reading the newspaper or watching television: Not at all 8. Moving or speaking so slowly that other people could have noticed? - Or the opposite - being so fidgety or restless that you have been moving around a lot more than usual: not at all 9. Thoughts that you would be better off or of hurting yourself in some way: Not at all Total score: 0 If you checked off any problems, how difficult have these problems made it for you to do your work, take care of things at home, or get along with other people?: not difficult at all Source: Developed by Drs. Rafa Almaraz, Otilia Rea, Bello Jacques and colleagues, with an educational titi from [employer] 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 She is on labetalol 200 twice daily for blood pressure. And states most of her blood pressures are in the normal range. She is off work on bedrest. She has not received an appointment for Dr. Esparza for maternal- medicine. She states she is called and this is getting authorized. Plus flutter. No vaginal bleeding or loss of fluids. Patient is still speaking with a quiet hoarse voice today. 10/28/24 <del>?</del> 17w 4d 100.868 kg 130/85 130/85 143 active Nausea vomiting better. Blood pressure better on labetalol. Patient states she is leaking. Went to [place] and did not get any answers. Sent to ER to rule out ruptured membranes. Need AmniSure and vaginitis panel. 11/09/24 <del>?</del> 19w 2d 101.151 kg 138/85 19 143 active Refill labetalol. Increase to 300 twice daily. Has level 2 ultrasound next week with Dr. Esparza. Reports good movement no contractions no vaginal bleeding has follow-up with her parathyroid doctor coming up. WAYNE Calculator Estimated Delivery Date Method Current WG Current Estimate 04/03/25 Ultrasound #1 19w 2d Other Estimates 04/11/25 LMP (Uncertain) 18w 1d Expected Delivery Route/Plan 29-year-old -0-0-1 previous x 1 for repeat Specific Issue/Plans 1. Previous for repeat 2. Hypothyroid secondary to partial thyroidectomy on medication 3. History of hyperparathyroidism status post removal of some of her parathyroid glands. Sees a specialist at [facility]. May need further surgery this . Parathyroid, calcium, phosphorous, thyroid numbers are normal at the beginning of this . 4. Chronic hypertension. On labetalol 200 mg p.o. twice daily at 14 weeks of . Office Procedures OB Clinic LOC & Office Proc's Nursing/Assessment Patient Status: Established Patient OB Clinic Nursing Assessment: Medication Reconciliation, Update PMH in EMR and Vital Signs OB Clinic Coordination of Care: Education Complex Pt/Fam, Consent,records obtained, informed consent, Lab and Imaging orders, Results/Orders obtained and Staff clarify orders Special Needs: Heart tones Established Patient Charge Established Patient Point Assignment: 115 Established Patient Point Charge: EP Level 3 (80-115)
== END 2024-11-09 10:05 | disposition home or self-care (01) ==
LOC: HODSOBC 09:02
PROVIDERS: Supervising Provider Obstetrics & Gynecology; Visit Provider Obstetrics & Gynecology
DX: O09.292 Supervision of pregnancy with other poor reproductive or obstetric history, second trimester (principal); O34.219 Maternal care for unspecified type scar from previous cesarean delivery; Z3A.19 19 weeks gestation of pregnancy; O09.892 Supervision of other high risk pregnancies, second trimester; O99.282 Endocrine, nutritional and metabolic diseases complicating pregnancy, second trimester; E89.0 Postprocedural hypothyroidism; O10.912 Unspecified pre-existing hypertension complicating pregnancy, second trimester; Z79.890 Hormone replacement therapy; Z79.899 Other long term (current) drug therapy
CPT/HCPCS: 99213; G0463

== ENCOUNTER 2024-12-11 09:26 | Outpatient (AMB) | payer BC, SELFPAY ==
[2024-12-11 09:43] VITALS: BP 118/81; PULSE 91; RESP 20; TEMP 36.8; O2SAT 99; BMI 39.4
--- NOTE | 2024-12-11 09:43 | AMB.OBVISIT ---
Vital Signs 12/11/24 09:43 Height 1.6 m Height Method Stated Weight 101.151 kg Weight Measurement Method Standing Scale BMI 39.4 BP 118/81 Blood Pressure Source Automatic Cuff Blood Pressure Location Left Upper Arm Position Sitting Respiration 20 Pulse 91 Pulse Source Monitor Temp 98.2 F Temp Source Oral Pulse Oximetry (%) 99 Oxygen Delivery Method Room Air Allergies/Home Meds Allergies & Medications Allergies No Known Allergies Allergy (Verified 12/11/24 09:46) Medication Reconciliation levothyroxine 50 mcg tablet (Synthroid) 50 mcg PO QDAY 09/23/24 [History Confirmed 12/11/24] ejzjvwph-etn-bhvem 120 mcg-dha 25 mg-herb no.293 66.7 mg chew tablet (Alive Premium ) tab PO 09/23/24 [History Confirmed 12/11/24] ondansetron HCl 4 mg tablet 4 mg PO Q6H PRN nausea and vomiting #30 tabs 09/25/24 [Rx Confirmed 12/11/24] ondansetron HCl 4 mg tablet 4 mg PO Q6H PRN nausea and vomiting #60 tabs 10/08/24 [Rx Confirmed 12/11/24] ondansetron 4 mg disintegrating tablet 4 mg PO Q6H PRN nausea and vomiting #90 tabs 10/20/24 [Rx Confirmed 12/11/24] ondansetron 4 mg disintegrating tablet 4 mg PO Q6H PRN nausea and vomiting #90 tabs 11/04/24 [Rx Confirmed 12/11/24] labetalol 100 mg tablet 300 mg (3 x 100 mg) PO BID #180 tabs 11/09/24 [Rx Confirmed 12/11/24] Intake Visit Data Collection New Patient or Established: Established Patient (seen at [facility] within 3 years) Reason for Visit:: CARE Seen by Clinical Staff ONLY (RN/MA): No 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 1. Little interest or pleasure in doing things: not at all 2. Feeling down, depressed, or hopeless: not at all Total score: 0 PHQ-9 3. Trouble falling or staying asleep, or sleeping too much: Not at all 4. Feeling tired or having little energy: Not at all 5. Poor appetite or overeating: Not at all 6. Feeling bad about yourself - or that you are a failure or have let yourself or your family down: Not at all 7. Trouble concentrating on things, such as reading the newspaper or watching television: Not at all 8. Moving or speaking so slowly that other people could have noticed? - Or the opposite - being so fidgety or restless that you have been moving around a lot more than usual: not at all 9. Thoughts that you would be better off or of hurting yourself in some way: Not at all Total score: 0 Source: Developed by Drs. Rafa Almaraz, Otilia Rea, Bello Jacques and colleagues, with an educational titi from [employer]. 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 She is on labetalol 200 twice daily for blood pressure. And states most of her blood pressures are in the normal range. She is off work on bedrest. She has not received an appointment for Dr. Esparza for maternal- medicine. She states she is called and this is getting authorized. Plus flutter. No vaginal bleeding or loss of fluids. Patient is still speaking with a quiet hoarse voice today. 10/28/24 <del>?</del> 17w 4d 100.868 kg 130/85 130/85 143 active Nausea vomiting better. Blood pressure better on labetalol. Patient states she is leaking. Went to [place] and did not get any answers. Sent to ER to rule out ruptured membranes. Need AmniSure and vaginitis panel. 11/09/24 <del>?</del> 19w 2d 101.151 kg 138/85 19 143 active Refill labetalol. Increase to 300 twice daily. Has level 2 ultrasound next week with Dr. Esparza. Reports good movement no contractions no vaginal bleeding has follow-up with her parathyroid doctor coming up. 12/11/24 <del>?</del> 23w 6d 101.151 kg 118/81 25 156 active Positive movement no contractions no loss of fluids. Had normal level [address] Esparza. Will follow closely with Dr. Esparza. WAYNE Calculator Estimated Delivery Date Method Current WG Current Estimate 04/03/25 Ultrasound #1 23w 6d Other Estimates 04/11/25 LMP (Uncertain) 22w 5d Expected Delivery Route/Plan 29-year-old -0-0-1 previous x 1 for repeat EDC 04/03/25 Consistent with Level II US Specific Issue/Plans 1. Previous for repeat 2. Hypothyroid secondary to partial thyroidectomy on medication 3. History of hyperparathyroidism status post removal of some of her parathyroid glands. Sees a specialist at [facility]. May need further surgery this . Parathyroid, calcium, phosphorous, thyroid numbers are normal at the beginning of this . 4. Chronic hypertension. On labetalol 200 mg p.o. twice daily at 14 weeks of . Notes Visit Date: 12/11/24 Last Updated by: Lashay Morel (OB Clinic)MD Patient is having kidney pain. She has a history of kidney stones. She has a history of hyperparathyroidism. Dr. Esparza is going to have a Zoom call with both her adult neuropsychologist and her parathyroid surgeon. Dr. Esparza's under the opinion that she should have surgery as hyperparathyroidism can cause increased calcium and problems with the . She is following closely with Dr. Esparza. She is also going to see her kidney doctor coming up because she has a history of kidney stones. Will prescribe [place]. She needs a repeat scheduled for 37 to 38 weeks. I ordered her glucose challenge test. Her blood pressure is good today on 300 of labetalol twice a day. She is also checking this at home. Office Procedures OB Clinic LOC & Office Proc's Nursing/Assessment Patient Status: Established Patient OB Clinic Nursing Assessment: Medication Reconciliation, Update PMH in EMR and Vital Signs OB Clinic Coordination of Care: Complex Care and Chronic Disease 1-5, Consent,records obtained, informed consent, Education Simp Pt/Fam, Lab and Imaging orders, Results/Orders obtained and Staff clarify orders Special Needs: Heart tones Established Patient Charge Established Patient Point Assignment: 135 Established Patient Point Charge: EP Level 4 (120-155)
== END 2024-12-11 10:18 | disposition home or self-care (01) ==
LOC: HODSOBC 09:26
PROVIDERS: Supervising Provider Obstetrics & Gynecology; Visit Provider Obstetrics & Gynecology
DX: O09.292 Supervision of pregnancy with other poor reproductive or obstetric history, second trimester (principal); O34.219 Maternal care for unspecified type scar from previous cesarean delivery; O09.892 Supervision of other high risk pregnancies, second trimester; O99.282 Endocrine, nutritional and metabolic diseases complicating pregnancy, second trimester; E89.0 Postprocedural hypothyroidism; O10.912 Unspecified pre-existing hypertension complicating pregnancy, second trimester; Z79.899 Other long term (current) drug therapy; Z3A.23 23 weeks gestation of pregnancy; Z90.89 Acquired absence of other organs; Z79.890 Hormone replacement therapy; Z87.442 Personal history of urinary calculi
CPT/HCPCS: 99214; G0463

== ENCOUNTER 2025-01-11 13:17 | Outpatient (AMB) | payer BC, SELFPAY ==
[2025-01-11 13:33] VITALS: BP 127/78; PULSE 99; RESP 18; TEMP 36.9; O2SAT 98; BMI 39.5
--- NOTE | 2025-01-11 13:33 | OBCLNT_ITS ---
Vital Signs 01/11/25 13:33 Height 1.6 m Height Method Stated Weight 101.321 kg Weight Measurement Method Standing Scale BMI 39.5 BP 127/78 Blood Pressure Source Automatic Cuff Blood Pressure Location Left Upper Arm Position Sitting Respiration 18 Pulse 99 Pulse Source Monitor Temp 98.4 F Temp Source Oral Pulse Oximetry (%) 98 Oxygen Delivery Method Room Air Allergies/Home Meds Allergies & Medications Allergies No Known Allergies Allergy (Verified 01/11/25 13:33) Medication Reconciliation levothyroxine 50 mcg tablet (Synthroid) 50 mcg PO QDAY 09/23/24 [History Confirmed 01/11/25] ohvanwry-gld-neqmk 120 mcg-dha 25 mg-herb no.293 66.7 mg chew tablet (Alive Premium ) tab PO 09/23/24 [History Confirmed 01/11/25] labetalol 100 mg tablet 300 mg (3 x 100 mg) PO BID #180 tabs 11/09/24 [Rx Confirmed 01/11/25] Intake Visit Data Collection New Patient or Established: Established Patient (seen at [facility] within 3 years) Reason for Visit:: CARE Seen by Clinical Staff ONLY (RN/MA): No Patcher Bowling Ball Required: No Do You Feel Safe at Home: Yes Authorities Contacted: N/A PCP or OBGYN visit in last 3 months: Yes Hx Now: Yes Are you currently on any form of Control: No Pain Present Currently: No Pain Scale Used: Ribeiro-Rowell/Numerical Pain scale:: 0 Smoking Status Smoking Status: Never smoker Questionnaires Covid-19 Vaccine Questionnaire Has patient been vacinated for Covid-19 Have you been vacinated for Covid-19: Yes PHQ-9 PHQ-2 Over the last 2 weeks, how often have you been bothered by any of the following problems? 1. Little interest or pleasure in doing things: not at all 2. Feeling down, depressed, or hopeless: not at all Total score: 0 PHQ-9 3. Trouble falling or staying asleep, or sleeping too much: Not at all 4. Feeling tired or having little energy: Not at all 5. Poor appetite or overeating: Not at all 6. Feeling bad about yourself - or that you are a failure or have let yourself or your family down: Not at all 7. Trouble concentrating on things, such as reading the newspaper or watching television: Not at all 8. Moving or speaking so slowly that other people could have noticed? - Or the opposite - being so fidgety or restless that you have been moving around a lot more than usual: not at all 9. Thoughts that you would be better off or of hurting yourself in some way: Not at all Total score: 0 Source: Developed by Drs. Rafa Almaraz, Otilia Rea, Bello Jacques and colleagues, with an educational titi from [employer]. 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 She is on labetalol 200 twice daily for blood pressure. And states most of her blood pressures are in the normal range. She is off work on bedrest. She has not received an appointment for Dr. Esparza for maternal- medicine. She states she is called and this is getting authorized. Plus flutter. No vaginal bleeding or loss of fluids. Patient is still speaking with a quiet hoarse voice today. 10/28/24 -?-?-?-?-?-?-?-?-?-?-?-?- 17w 4d 100.868 kg 130/85 130/85 143 active Nausea vom iting better. Blood pressure better on labetalol. Patient states she is leaking. Went to [place] and did not get any answers. Sent to ER to ru le out ruptured membranes. Need AmniSure and vaginitis panel. 11/09/24 -?-?-?-?-?-?-?-?-?-?-?-?- 19w 2d 101.151 kg 138/85 19 143 active Refill labetalol. Increase to 300 twice daily. Has level 2 ultrasound next week with Dr. Esparza. Reports good movement no contractions no vaginal bleeding has follow-up with her parathyroid doctor coming up. 12/11/24 -?-?-?-?-?-?-?-?-?-?-?-?- 23w 6d 101.151 kg 118/81 25 156 active Positive movement no contractions no loss of fluids. Had normal level [address] Esparza. Will follow closely with Dr. Esparza. 01/11/25 -?-?-?-?-?-?-?-?-?-?-?-?- 28w 2d 101.321 kg 127/78 28 145 active Good movement. No contractions. No loss of fluids. No vaginal bleeding. Was admitted to [facility] for a week recently for kidney stones. Saw Dr. uPlliam. Had a stent placed and removed. WAYNE Calculator Estimated Delivery Date Method Current WG Current Estimate 04/03/25 Ultrasound #1 28w 4d Other Estimates 04/11/25 LMP (Uncertain) 27w 3d Expected Delivery Route/Plan 29-year-old -0-0-1 previous x 1 for repeat EDC 04/03/25 Consistent with Level II US Specific Issue/Plans 1. Previous for repeat 2. Hypothyroid secondary to partial thyroidectomy on medication 3. History of hyperparathyroidism status post removal of some of her parathyroid glands. Sees a specialist at [facility]. May need further surgery this . Parathyroid, calcium, phosphorous, thyroid numbers are normal at the beginning of this . 4. Chronic hypertension. On labetalol 200 mg p.o. twice daily at 14 weeks of . Notes Visit Date: 01/11/25 Last Updated by: Lashay Morel (OB Clinic)MD On 12/29, the pt had some type of parathyroidectomy and thyroid surgery in [facility]. 12/31 through , she was admitted to [facility] for kidney stones ,lithotripsy, and stent placement. This was by Dr. Pulliam. She has since had her stent removed. I have no records on either surgery. Patient's blood pressure would go up and down according to her and they had to push some labetalol. They state her LFTs were high and wanted her to have repeat liver function test. Patient is being comanaged with Dr. Esparza. She is unsure whether she would like a tubal ligation with her . They are going to asked their hospital television rental clerk as they are [employer]. I did tell the patient she is extremely high risk if she gets again. Visit Date: 12/11/24 Last Updated by: Lsahay Morel (OB Clinic)MD Patient is having kidney pain. She has a history of kidney stones. She has a history of hyperparathyroidism. Dr. Esparza is going to have a Zoom call with both her wood flooring specialist and her parathyroid surgeon. Dr. Esparza's under the opinion that she should have surgery as hyperparathyroidism can cause increased calcium and problems with the . She is following closely with Dr. Esparza. She is also going to see her kidney doctor coming up because she has a history of kidney stones. Will prescribe [place]. She needs a repeat scheduled for 37 to 38 weeks. I ordered her glucose challenge test. Her blood pressure is good today on 300 of labetalol twice a day. She is also checking this at home. Office Procedures OB Clinic LOC & Office Proc's Nursing/Assessment Patient Status: Established Patient OB Clinic Nursing Assessment: Medication Reconciliation, Update PMH in EMR and Vital Signs OB Clinic Coordination of Care: Complex Care and Chronic Disease 1-5, Consent,records obtained, informed consent, Education Simp Pt/Fam, Lab and Imaging orders, Results/Orders obtained and Staff clarify orders Special Needs: Heart tones Established Patient Charge Established Patient Point Assignment: 135 Established Patient Point Charge: EP Level 4 (120-155) Assessment & Plan Diagnosis / Problem List (1) Chronic hypertension affecting : Status: Acute Plan: Continue labetalol (2) Hyperparathyroidism: Status: Acute (3) : Status: Acute Qualifiers: Weeks of gestation: 28 weeks Qualified Code(s): Z3A.28 - 28 weeks gestation of (4) Nephrolithiasis: Status: Acute Plan: Patient is following with Dr. Pulliam. She is on Septra for a recent stent placement and removal with UTI. Additional Plan Follow-up labs were ordered through [facility]. Follow Up: 2 Weeks
== END 2025-01-11 14:41 | disposition home or self-care (01) ==
LOC: HODSOBC 13:17
PROVIDERS: Supervising Provider Obstetrics & Gynecology; Visit Provider Obstetrics & Gynecology
DX: O09.893 Supervision of other high risk pregnancies, third trimester (principal); O99.283 Endocrine, nutritional and metabolic diseases complicating pregnancy, third trimester; E89.0 Postprocedural hypothyroidism; O10.913 Unspecified pre-existing hypertension complicating pregnancy, third trimester; O99.891 Other specified diseases and conditions complicating pregnancy; N20.0 Calculus of kidney; O09.293 Supervision of pregnancy with other poor reproductive or obstetric history, third trimester; O34.219 Maternal care for unspecified type scar from previous cesarean delivery; Z3A.28 28 weeks gestation of pregnancy; Z79.890 Hormone replacement therapy; Z90.89 Acquired absence of other organs; Z79.899 Other long term (current) drug therapy; Y83.6 Removal of other organ (partial) (total) as the cause of abnormal reaction of the patient, or of later complication, without mention of misadventure at the time of the procedure
CPT/HCPCS: 99214; G0463

== ENCOUNTER 2025-01-26 08:40 | Outpatient (AMB) | payer BC, SELFPAY ==
[2025-01-26 08:41] VITALS: BP 127/87; PULSE 20; RESP 118; TEMP 36.4; O2SAT 98; BMI 39.9
--- NOTE | 2025-01-26 08:41 | OBCLNT_ITS ---
Vital Signs 01/26/25 08:41 Height 1.6 m Height Method Stated Weight 102.228 kg Weight Measurement Method Standing Scale BMI 39.9 BP 127/87 H Blood Pressure Source Automatic Cuff Blood Pressure Location Left Upper Arm Position Sitting Respiration 118 H Pulse 20 L Pulse Source Monitor Temp 97.6 F Temp Source Oral Pulse Oximetry (%) 98 Oxygen Delivery Method Room Air Allergies/Home Meds Allergies & Medications Allergies No Known Allergies Allergy (Verified 01/26/25 08:43) Medication Reconciliation levothyroxine 50 mcg tablet (Synthroid) 50 mcg PO QDAY 09/23/24 [History Confirmed 01/26/25] dvdhwfnr-spd-lwjrl 120 mcg-dha 25 mg-herb no.293 66.7 mg chew tablet (Alive Premium ) tab PO 09/23/24 [History Confirmed 01/26/25] labetalol 100 mg tablet 300 mg (3 x 100 mg) PO BID #180 tabs 11/09/24 [Rx Confirmed 01/26/25] Intake Visit Data Collection New Patient or Established: Established Patient (seen at [facility] within 3 years) Reason for Visit:: CARE Seen by Clinical Staff ONLY (RN/MA): No Fruit Or Nut Farmer Required: No Do You Feel Safe at Home: Yes Authorities Contacted: N/A PCP or OBGYN visit in last 3 months: Yes Hx Now: Yes Are you currently on any form of Control: No Pain Present Currently: No Pain Scale Used: Ribeiro-Rowell/Numerical Pain scale:: 0 Smoking Status Smoking Status: Never smoker Questionnaires Covid-19 Vaccine Questionnaire Has patient been vacinated for Covid-19 Have you been vacinated for Covid-19: Yes PHQ-9 PHQ-2 Over the last 2 weeks, how often have you been bothered by any of the following problems? 1. Little interest or pleasure in doing things: not at all 2. Feeling down, depressed, or hopeless: not at all Total score: 0 PHQ-9 3. Trouble falling or staying asleep, or sleeping too much: Not at all 4. Feeling tired or having little energy: Not at all 5. Poor appetite or overeating: Not at all 6. Feeling bad about yourself - or that you are a failure or have let yourself or your family down: Not at all 7. Trouble concentrating on things, such as reading the newspaper or watching television: Not at all 8. Moving or speaking so slowly that other people could have noticed? - Or the opposite - being so fidgety or restless that you have been moving around a lot more than usual: not at all 9. Thoughts that you would be better off or of hurting yourself in some way: Not at all Total score: 0 Source: Developed by Drs. Rafa Almaraz, Otilia Rea, Bello Jacques and colleagues, with an educational titi from [employer]. 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 She is on labetalol 200 twice daily for blood pressure. And states most of her blood pressures are in the normal range. She is off work on bedrest. She has not received an appointment for Dr. Esparza for maternal- medicine. She states she is called and this is getting authorized. Plus flutter. No vaginal bleeding or loss of fluids. Patient is still speaking with a quiet hoarse voice today. 10/28/24 -?-?-?-?-?-?-?-?-?-?-?-?- 17w 4d 100.868 kg 130/85 130/85 143 active Nausea vom iting better. Blood pressure better on labetalol. Patient states she is leaking. Went to [place] and did not get any answers. Sent to ER to ru le out ruptured membranes. Need AmniSure and vaginitis panel. 11/09/24 -?-?-?-?-?-?-?-?-?-?-?-?- 19w 2d 101.151 kg 138/85 19 143 active Refill labetalol. Increase to 300 twice daily. Has level 2 ultrasound next week with Dr. Esparza. Reports good movement no contractions no vaginal bleeding has follow-up with her parathyroid doctor coming up. 12/11/24 -?-?-?-?-?-?-?-?-?-?-?-?- 23w 6d 101.151 kg 118/81 25 156 active Positive movement no contractions no loss of fluids. Had normal level [address] Esparza. Will follow closely with Dr. Esparza. 01/11/25 -?-?-?-?-?-?-?-?-?-?-?-?- 28w 2d 101.321 kg 127/78 28 145 active Good movement. No contractions. No loss of fluids. No vaginal bleeding. Was admitted to [facility] for a week recently for kidney stones. Saw Dr. Pulliam. Had a stent placed and removed. 01/26/25 -?-?-?-?-?-?-?-?-?-?-?-?- 30w 3d 102.228 kg 127/87 147 active Good movement no contractions or vaginal bleeding. Patient thinks she passed her mucous plug and went to [place] last week and was closed thick and high. WAYNE Calculator Estimated Delivery Date Method Current WG Current Estimate 04/03/25 Ultrasound #1 30w 3d Other Estimates 04/11/25 LMP (Uncertain) 29w 2d Expected Delivery Route/Plan 29-year-old -0-0-1 previous x 1 for repeat EDC 04/03/25 Consistent with Level II US Specific Issue/Plans 1. Previous for repeat 2. Hypothyroid secondary to partial thyroidectomy on medication 3. History of hyperparathyroidism status post removal of some of her parathyroid glands. Sees a specialist at [facility]. May need further surgery this . Parathyroid, calcium, phosphorous, thyroid numbers are normal at the beginning of this . 4. Chronic hypertension. On labetalol 200 mg p.o. twice daily at 14 weeks of . Notes Visit Date: 01/26/25 Last Updated by: Lashay Morel (OB Clinic)MD The patient states when she was admitted for kidney stones, they did a fibronectin and it was positive. She was not given steroids. This was greater than 2 weeks ago. Patient is still passing blackish looking stones. She is to follow-up with Dr. Pulliam about this. She is on 200 labetalol twice a day. Were going to schedule at 38 weeks secondary to chronic hyp ertension, parathyroid disease, multiple kidney stones and admissions to the hospital. Status post stent placement and removal. Status post parathyroid surgery during . Patient following with [facility]. Visit Date: 01/11/25 Last Updated by: Lashay Morel (OB Clinic)MD On 12/29, the pt had some type of parathyroidectomy and thyroid surgery in the [place] area. 12/31 through , she was admitted to [facility] for kidney stones ,lithotripsy, and stent placement. This was by Dr. Pulliam. She has since had her stent removed. I have no records on either surgery. Patient's blood pressure would go up and down according to her and they had to push some labetalol. They state her LFTs were high and wanted her to have repeat liver function test. Patient is being comanaged with Dr. Esparza. She is unsure whether she would like a tubal ligation with her . They are going to asked their highway engineer as they are Yarsanism. I did tell the patient she is extremely high risk if she gets again. Visit Date: 12/11/24 Last Updated by: Lashay Morel (OB Clinic)MD Patient is having kidney pain. She has a history of kidney stones. She has a history of hyperparathyroidism. Dr. Esparza is going to have a Zoom call with both her synthetic gem press operator and her parathyroid surgeon. Dr. Esparza's under the opinion that she should have surgery as hyperparathyroidism can cause increased calcium and problems with the . She is following closely with Dr. Esparza. She is also going to see her kidney doctor coming up because she has a history of kidney stones. Will prescribe Daisy. She needs a repeat scheduled for 37 to 38 weeks. I ordered her glucose challenge test. Her blood pressure is good today on 300 of labetalol twice a day. She is also checking this at home. Office Procedures OB Clinic LOC & Office Proc's Nursing/Assessment Patient Status: Established Patient OB Clinic Nursing Assessment: Medication Reconciliation, Update PMH in EMR and Vital Signs OB Clinic Coordination of Care: Complex Care and Chronic Disease 1-5, Consent,records obtained, informed consent, Education Simp Pt/Fam, Lab and Imaging orders, Results/Orders obtained and Staff clarify orders Special Needs: Heart tones Established Patient Charge Established Patient Point Assignment: 135 Established Patient Point Charge: EP Level 4 (120-155) Assessment & Plan Diagnosis / Problem List (1) Nephrolithiasis: Status: Acute (2) Chronic hypertension affecting : Status: Acute (3) Hyperparathyroidism: Status: Acute (4) Hypothyroidism affecting : Status: Acute Qualifiers: Trimester: second trimester Qualified Code(s): O99.282 - Endocrine, nutritional and metabolic diseases complicating , second trimester; E03.9 - Hypothyroidism, unspecified (5) : Status: Acute Qualifiers: Weeks of gestation: 30 weeks Qualified Code(s): Z3A.30 - 30 weeks gestation of Plan: For Celestone next time
== END 2025-01-26 09:08 | disposition home or self-care (01) ==
LOC: HODSOBC 08:40
PROVIDERS: Supervising Provider Obstetrics & Gynecology; Visit Provider Obstetrics & Gynecology
DX: O09.291 Supervision of pregnancy with other poor reproductive or obstetric history, first trimester (principal); O34.219 Maternal care for unspecified type scar from previous cesarean delivery; O09.893 Supervision of other high risk pregnancies, third trimester; O99.891 Other specified diseases and conditions complicating pregnancy; N20.0 Calculus of kidney; O10.913 Unspecified pre-existing hypertension complicating pregnancy, third trimester; O99.283 Endocrine, nutritional and metabolic diseases complicating pregnancy, third trimester; E89.0 Postprocedural hypothyroidism; Z3A.30 30 weeks gestation of pregnancy; Z79.890 Hormone replacement therapy; Z79.899 Other long term (current) drug therapy; Z87.442 Personal history of urinary calculi
CPT/HCPCS: 99214; G0463

== ENCOUNTER 2025-02-12 09:24 | Outpatient (AMB) | payer BC, SELFPAY ==
--- NOTE | 2025-02-12 09:45 | OBCLNT_ITS ---
Vital Signs 02/12/25 09:46 Height 1.6 m Height Method Stated Weight 103.532 kg Weight Measurement Method Standing Scale BMI 40.4 BP 128/82 Blood Pressure Source Automatic Cuff Blood Pressure Location Left Upper Arm Position Sitting Respiration 16 Pulse 123 H Pulse Source Monitor Temp 97.2 F Temp Source Oral Pulse Oximetry (%) 98 Oxygen Delivery Method Room Air Allergies/Home Meds Allergies & Medications Allergies No Known Allergies Allergy (Verified 02/12/25 12:21) Medication Reconciliation levothyroxine 50 mcg tablet (Synthroid) 50 mcg PO QDAY 09/23/24 [History Confirmed 02/12/25] gennxneh-nqu-gomtb 120 mcg-dha 25 mg-herb no.293 66.7 mg chew tablet (Alive Premium ) 1 tab PO QDAY 09/23/24 [History Confirmed 02/12/25] labetalol 100 mg tablet 300 mg (3 x 100 mg) PO BID #180 tabs 11/09/24 [Rx Confirmed 02/12/25] Intake Visit Data Collection New Patient or Established: Established Patient (seen at [facility] within 3 years) Reason for Visit:: OBC Seen by Clinical Staff ONLY (RN/MA): No Wool Fleece Sorter Required: No Do You Feel Safe at Home: Yes Authorities Contacted: N/A PCP or OBGYN visit in last 3 months: Yes Date of Last PCP or OBGYN visit: 01/26/25 Hx Now: Yes Are you currently on any form of Control: No Pain Present Currently: Yes Pain Scale Used: Ribeiro-Rowell/Numerical Pain scale:: 5 Smoking Status Smoking Status: Never smoker Questionnaires Covid-19 Vaccine Questionnaire Has patient been vacinated for Covid-19 Have you been vacinated for Covid-19: Yes PHQ-9 PHQ-2 Over the last 2 weeks, how often have you been bothered by any of the following problems? 1. Little interest or pleasure in doing things: not at all 2. Feeling down, depressed, or hopeless: not at all Total score: 0 PHQ-9 3. Trouble falling or staying asleep, or sleeping too much: Not at all 4. Feeling tired or having little energy: Not at all 5. Poor appetite or overeating: Not at all 6. Feeling bad about yourself - or that you are a failure or have let yourself or your family down: Not at all 7. Trouble concentrating on things, such as reading the newspaper or watching television: Not at all 8. Moving or speaking so slowly that other people could have noticed? - Or the opposite - being so fidgety or restless that you have been moving around a lot more than usual: not at all 9. Thoughts that you would be better off or of hurting yourself in some way: Not at all Total score: 0 If you checked off any problems, how difficult have these problems made it for you to do your work, take care of things at home, or get along with other people?: not difficult at all Source: Developed by Drs. Rafa Almaraz, Otilia Rea, Bello Jacques and colleagues, with an educational titi from [employer]. 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 turning 5 in 03/20 Tobacco History Smoking Status: Never smoker Second Hand Smoke Exposure: No Alcohol History Alcohol Intake: Never Domestic Abuse History Do You Feel Safe at Home: Yes [employer]: Past Medical History Past Medical History: Yes Hx Hypothyroidism (Status post partial thyroidectomy), No Hx Breast Cancer, No Hx Anemia, Yes Hx Renal Disease, No Hx Diabetes Mellitus Type 1, No Hx Diabetes Mellitus Type 2 and No Hx Polycystic Ovarian Syndrome Care OB Visit Log OB Flowsheet Initial Weight: Not Recorded Date -?-?-?-?-?-?-?-?-?-?-?-?- EGA Weight BP Alb Glu CTX Pres Fundal ht FHR Mov Dilation Station Effacement Hx Notes Visit Note 10/20/24 -?-?-?-?-?-?-?-?-?-?-?-?- 16w 3d 100.414 kg 116/72 155 active Patient needs a refill on Zofran. She is on labetalol 200 twice daily for blood pressure. And states most of her blood pressures are in the normal range. She is off work on bedrest. She has not received an appointment for Dr. Esparza for maternal- medicine. She states she is called and this is getting authorized. Plus flutter. No vaginal bleeding or loss of fluids. Patient is still speaking with a quiet hoarse voice today. 10/28/24 -?-?-?-?-?-?-?-?-?-?-?-?- 17w 4d 100.868 kg 130/85 130/85 143 active Nausea vom iting better. Blood pressure better on labetalol. Patient states she is leaking. Went to [place] and did not get any answers. Sent to ER to ru le out ruptured membranes. Need AmniSure and vaginitis panel. 11/09/24 -?-?-?-?-?-?-?-?-?-?-?-?- 19w 2d 101.151 kg 138/85 19 143 active Refill labetalol. Increase to 300 twice daily. Has level 2 ultrasound next week with Dr. Esparza. Reports good movement no contractions no vaginal bleeding has follow-up with her parathyroid doctor coming up. 12/11/24 -?-?-?-?-?-?-?-?-?-?-?-?- 23w 6d 101.151 kg 118/81 25 156 active Positive movement no contractions no loss of fluids. Had normal level [address] Esparza. Will follow closely with Dr. Esparza. 01/11/25 -?-?-?-?-?-?-?-?-?-?-?-?- 28w 2d 101.321 kg 127/78 28 145 active Good movement. No contractions. No loss of fluids. No vaginal bleeding. Was admitted to [facility] for a week recently for kidney stones. Saw Dr. Pulliam. Had a stent placed and removed. 01/26/25 -?-?-?-?-?-?-?-?-?-?--?-?- 30w 3d 102.228 kg 127/87 147 active Good movement no contractions or vaginal bleeding. Patient thinks she passed her mucous plug and went to [place] last week and was closed thick and high. 02/12/25 -?-?-?-?-?-?-?-?-?-?-?-?- 32w 6d 103.532 kg 128/82 WAYNE Calculator Estimated Delivery Date Method Current WG Current Estimate 04/03/25 Ultrasound #1 32w 6d Other Estimates 04/11/25 LMP (Uncertain) 31w 5d Expected Delivery Route/Plan 29-year-old -0-0-1 previous x 1 for repeat EDC 04/03/25 Consistent with Level II US Specific Issue/Plans 1. Previous for repeat 2. Hypothyroid secondary to partial thyroidectomy on medication 3. History of hyperparathyroidism status post removal of some of her parathyroid glands. Sees a specialist at [facility]. Had parathyroid removal surgery this . Parathyroid, calcium, phosphorous, thyroid numbers are normal at the beginning of this . 4. Chronic hypertension. On labetalol 200 mg p.o. twice daily at 14 weeks of on baby aspirin 5. Kidney stones with admission to [facility], kidney stone blasting and placement of the stent during this . The stent was removed. Notes Visit Date: 02/12/25 Last Updated by: Lashay Morel (OB Clinic)MD Sent patient to OB triage to rule out kidney stone. Check ultrasound, check renal ultrasound. Celestone given 919 and will repeat 02/13/2025 Reviewed 24-hour urine and is 354. Fasting glucose 113. No hemoglobin A1c drawn for some reason but ordered. Patient cannot tolerate a 1 hour glucose. Visit Date: 01/26/25 Last Updated by: Lashay Morel (OB Clinic)MD The patient states when she was admitted for kidney stones, they did a fibronectin and it was positive. She was not given steroids. This was greater than 2 weeks ago. Patient is still passing blackish looking stones. She is to follow-up with Dr. Pulliam about this. She is on 200 labetalol twice a day. Were going to schedule at 38 weeks secondary to chronic hypertension, parathyroid disease, multiple kidney stones and admissions to the hospital. Status post stent placement and removal. Status post parathyroid surgery during . Patient following with [facility]. Visit Date: 01/11/25 Last Updated by: Lashay Morel (OB Clinic)MD On 12/29, the pt had some type of parathyroidectomy and thyroid surgery in the [place] area. 12/31 through , she was admitted to [facility] for kidney stones ,lithotripsy, and stent placement. This was by Dr. Pulliam. She has since had her stent removed. I have no records on either surgery. Patient's blood pressure would go up and down according to her and they had to push some labetalol. They state her LFTs were high and wanted her to have repeat liver function test. Patient is being comanaged with Dr. Esparza. She is unsure whether she would like a tubal ligation with her . They are going to asked their animal rides manager as they are Christianity. I did tell the patient she is extremely high risk if she gets again. Visit Date: 12/11/24 Last Updated by: Lashay Morel (OB Clinic)MD Patient is having kidney pain. She has a history of kidney stones. She has a history of hyperparathyroidism. Dr. Esparza is going to have a Zoom call with both her aviation ordnance officer and her parathyroid surgeon. Dr. Esparza's under the opinion that she should have surgery as hyperparathyroidism can cause increased calcium and problems with the . She is following closely with Dr. Esparza. She is also going to see her kidney doctor coming up because she has a history of kidney stones. Will prescribe Yo[place]um. She needs a repeat scheduled for 37 to 38 weeks. I ordered her glucose challenge test. Her blood pressure is good today on 300 of labetalol twice a day. She is also checking this at home. Office Procedures OB Clinic LOC & Office Proc's Nursing/Assessment Patient Status: Established Patient OB Clinic Nursing Assessment: Medication Reconciliation, Update PMH in EMR and Vital Signs OB Clinic Coordination of Care: Education Complex Pt/Fam, Consent,records obtained, informed consent, Lab and Imaging orders, Results/Orders obtained and Staff clarify orders Special Needs: Heart tones Established Patient Charge Established Patient Point Assignment: 115 Established Patient Point Charge: Level 3 (80-115) Assessment & Plan Diagnosis / Problem List (1) Nephrolithiasis: Status: Acute Plan: Sees Dr. Pulliam at [facility]. Status post multiple admissions for stones, kidney stone blasting, stent placement this with removal. (2) Chronic hypertension affecting : Status: Acute Plan: On the labetalol 200 twice daily (3) Hypothyroidism affecting : Status: Acute Qualifiers: Trimester: second trimester Qualified Code(s): O99.282 - Endocrine, nutritional and metabolic diseases complicating , second trimester; E03.9 - Hypothyroidism, unspecified (4) Hyperparathyroidism: Status: Acute Plan: Status post removal of some of her parathyroid glands during this . (5) : Status: Acute Qualifiers: Weeks of gestation: 32 weeks Qualified Code(s): Z3A.32 - 32 weeks gestation of
[2025-02-12 09:46] VITALS: BP 128/82; PULSE 123; RESP 16; TEMP 36.2; O2SAT 98; BMI 40.4
== END 2025-02-12 10:33 | disposition home or self-care (01) ==
LOC: HODSOBC 09:24
PROVIDERS: Supervising Provider Obstetrics & Gynecology; Visit Provider Obstetrics & Gynecology
DX: O09.893 Supervision of other high risk pregnancies, third trimester (principal); O99.891 Other specified diseases and conditions complicating pregnancy; N20.0 Calculus of kidney; O99.283 Endocrine, nutritional and metabolic diseases complicating pregnancy, third trimester; E89.0 Postprocedural hypothyroidism; O10.913 Unspecified pre-existing hypertension complicating pregnancy, third trimester; O09.293 Supervision of pregnancy with other poor reproductive or obstetric history, third trimester; O34.219 Maternal care for unspecified type scar from previous cesarean delivery; Z3A.32 32 weeks gestation of pregnancy; Z79.899 Other long term (current) drug therapy; Z79.890 Hormone replacement therapy
CPT/HCPCS: 99213; G0463

== ENCOUNTER 2025-02-12 10:52 | Observation (INO) | payer BC, SELFPAY ==
[2025-02-12] VITALS (16 sets, daily range): BP systolic 117–169; BP diastolic 68–99; PULSE 90–117; RESP 16–98; TEMP 36.8; O2SAT 97–99; BMI 40.4
--- NOTE | 2025-02-12 10:45 | XR_ITS ---
Examination: Complete OB ultrasound greater than 14 weeks Date and time of exam: February 12, 2025 1113 hours INDICATIONS: Left flank pain beginning 3 days ago Findings: Viable intrauterine single fetus with single amniotic sac presentation cephalic Cardiac motion 137 BPM Placenta posterior grade 2 Clinical: Insertion 3 vessel seen Amniotic fluid index 20.6 cm spine maternal right Cervix 3.4 cm Right ovary 3.6 cm arterial flow Left ovary 4.0 cm arterial flow. Composite estimated gestational age based on BPD, head circumference, abdominal circumference, femur length is 32 weeks 4 days Estimated weight 2077 g. Survey of intracranial anatomy, spinal anatomy, abdominal anatomy, four-chamber heart performed with no abnormalities identified. Impression: Viable intrauterine gestation cephalic presentation..
--- NOTE | 2025-02-12 11:18 | XR_ITS ---
Examination: Abdomen sonogram, complete Date and time of exam: February 12, 2025 11:15 AM INDICATIONS: Left flank pain beginning 3 days ago.. Technique: Multiple real-time grayscale transabdominal sonographic images of the abdomen have been obtained. Findings: Absent gallbladder Common bile duct 0.3 cm Pancreatic head 2.5 cm Aorta not enlarged Liver 17.6 cm fatty infiltration Normal hepatopedal portal venous flow Patent IVC Right kidney 12.4 cm renal cortex 2.0 cm Left kidney 12.3 cm cortex 2.6 cm Mild renal scar formation Spleen 12.1 cm IMPRESSION: Normal common bile duct Moderate bilateral exit fatty infiltration no focal liver lesions
[2025-02-12 12:26] LABS: Collection Type, Urine Clean Catch
[2025-02-12 12:37] LABS: Bacteria,Urine Rare; Bilirubin,Urine Negative (Negative); Blood,Urine 2+ (Negative); Calcium Oxalate Crystals,Urine 2+; Clarity,Urine Turbid (Clear/Hazy); Color,Urine Yellow (Lt Yel-Yel); Glucose, Urine Trace (Negative); Ketones,Urine Trace (Negative); Leukocyte Esterase,Urine Positive (Negative); Nitrite,Urine Negative (Negative); PH,Urine 5.5 (5.0-7.0); Protein,Urine Trace (Neg - Trace); RBC,Urine 7 /hpf (0-3); Specific Gravity,Urine 1.028 (1.001-1.035); Squamous Epithelial Cell,Urine 19 /hpf (0-5); Urobilinogen,Urine Negative mg/dL (0.0-1.0); WBC,Urine 4 /hpf (0-5)
[2025-02-12] MEDS: BETAMET ACET/BETAMET NA PH (Celestone) 6 MG/ML VIAL 12 MG IM (13:04)
[2025-02-12] MEDS: LABETALOL 100 MG TABLET PO (13:04)
== END 2025-02-12 13:50 | disposition home or self-care (01) ==
PROVIDERS: Admitting Provider Obstetrics & Gynecology; Visit Provider Obstetrics & Gynecology
DX: O26.893 Other specified pregnancy related conditions, third trimester (principal); M54.9 Dorsalgia, unspecified; O26.613 Liver and biliary tract disorders in pregnancy, third trimester; K76.0 Fatty (change of) liver, not elsewhere classified; Z3A.33 33 weeks gestation of pregnancy
CPT/HCPCS: 59025; 59899; 76700; 76805; 81001; 87086; 96372; J0702; A9270

== ENCOUNTER 2025-02-13 12:36 | Outpatient (CLI) | payer BC, SELFPAY ==
[2025-02-13 12:46] VITALS: BP 125/73; PULSE 107
[2025-02-13 13:01] VITALS: BP 125/73; PULSE 107; RESP 18; TEMP 36.7; BMI 36.8
[2025-02-13] MEDS: BETAMET ACET/BETAMET NA PH (Celestone) 6 MG/ML VIAL 12 MG IM (13:13)
== END 2025-02-13 13:20 | disposition home or self-care (01) ==
LOC: S4S1 12:39 → S4SX 12:39
PROVIDERS: Referring Provider Obstetrics & Gynecology; Visit Provider Obstetrics & Gynecology
DX: Z34.83 Encounter for supervision of other normal pregnancy, third trimester (principal); Z36.89 Encounter for other specified antenatal screening; Z3A.33 33 weeks gestation of pregnancy
CPT/HCPCS: 59025; 96372; J0702

== ENCOUNTER 2025-02-24 09:06 | Outpatient (AMB) | payer BC, SELFPAY ==
[2025-02-24 09:09] VITALS: BP 127/84; PULSE 98; RESP 18; TEMP 36.6; O2SAT 98; BMI 40.6
--- NOTE | 2025-02-24 09:09 | AMB.OBVISIT ---
Vital Signs 02/24/25 09:09 Height 1.6 m Height Method Stated Weight 104.099 kg Weight Measurement Method Standing Scale BMI 40.6 BP 127/84 Blood Pressure Source Automatic Cuff Blood Pressure Location Left Upper Arm Position Sitting Respiration 18 Pulse 98 Pulse Source Monitor Temp 98 F Temp Source Oral Pulse Oximetry (%) 98 Oxygen Delivery Method Room Air Allergies/Home Meds Allergies & Medications Allergies No Known Allergies Allergy (Verified 02/24/25 09:09) Medication Reconciliation levothyroxine 50 mcg tablet (Synthroid) 50 mcg PO QDAY 09/23/24 [History Confirmed 02/24/25] [id number] 120 mcg-dha 25 mg-herb no.293 66.7 mg chew tablet (Alive Premium ) 1 tab PO QDAY 09/23/24 [History Confirmed 02/24/25] labetalol 100 mg tablet 300 mg (3 x 100 mg) PO BID #180 tabs 11/09/24 [Rx Confirmed 02/24/25] Intake Visit Data Collection New Patient or Established: Established Patient (seen at [facility] within 3 years) Reason for Visit:: CARE Seen by Clinical Staff ONLY (RN/MA): No Public Health Veterinarian Required: No Do You Feel Safe at Home: Yes Authorities Contacted: N/A PCP or OBGYN visit in last 3 months: Yes Hx Now: Yes Are you currently on any form of Control: No Pain Present Currently: No Pain Scale Used: Ribeiro-Rowell/Numerical Pain scale:: 0 Smoking Status Smoking Status: Never smoker Questionnaires Covid-19 Vaccine Questionnaire Has patient been vacinated for Covid-19 Have you been vacinated for Covid-19: Yes PHQ-9 PHQ-2 Over the last 2 weeks, how often have you been bothered by any of the following problems? 1. Little interest or pleasure in doing things: not at all 2. Feeling down, depressed, or hopeless: not at all Total score: 0 PHQ-9 3. Trouble falling or staying asleep, or sleeping too much: Not at all 4. Feeling tired or having little energy: Not at all 5. Poor appetite or overeating: Not at all 6. Feeling bad about yourself - or that you are a failure or have let yourself or your family down: Not at all 7. Trouble concentrating on things, such as reading the newspaper or watching television: Not at all 8. Moving or speaking so slowly that other people could have noticed? - Or the opposite - being so fidgety or restless that you have been moving around a lot more than usual: not at all 9. Thoughts that you would be better off or of hurting yourself in some way: Not at all Total score: 0 Source: Developed by Drs. Rafa Almaraz, Otilia Rea, Bello Jacques and colleagues, with an educational titi from [employer]. 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 turning 5 in 03/20 Tobacco History Smoking Status: Never smoker Second Hand Smoke Exposure: No Alcohol History Alcohol Intake: Never Domestic Abuse History Do You Feel Safe at Home: Yes PERIODONTIST: Past Medical History Past Medical History: Yes Hx Hypothyroidism (Status post partial thyroidectomy), No Hx Breast Cancer, No Hx Anemia, Yes Hx Renal Disease, No Hx Diabetes Mellitus Type 1, No Hx Diabetes Mellitus Type 2 and No Hx Polycystic Ovarian Syndrome Care OB Visit Log OB Flowsheet Initial Weight: Not Recorded Date <del>?</del> EGA Weight BP Alb Glu CTX Pres Fundal ht FHR Mov Dilation Station Effacement Hx Notes Visit Note 10/20/24 <del>?</del> 16w 3d 100.414 kg 116/72 155 active Patient needs a refill on Zofran. She is on labetalol 200 twice daily for blood pressure. And states most of her blood pressures are in the normal range. She is off work on bedrest. She has not received an appointment for Dr. Esparza for maternal- medicine. She states she is called and this is getting authorized. Plus flutter. No vaginal bleeding or loss of fluids. Patient is still speaking with a quiet hoarse voice today. 10/28/24 <del>?</del> 17w 4d 100.868 kg 130/85 130/85 143 active Nausea vomiting better. Blood pressure better on labetalol. Patient states she is leaking. Went to [place] and did not get any answers. Sent to ER to rule out ruptured membranes. Need AmniSure and vaginitis panel. 11/09/24 <del>?</del> 19w 2d 101.151 kg 138/85 19 143 active Refill labetalol. Increase to 300 twice daily. Has level 2 ultrasound next week with Dr. Esparza. Reports good movement no contractions no vaginal bleeding has follow-up with her parathyroid doctor coming up. 12/11/24 <del>?</del> 23w 6d 101.151 kg 118/81 25 156 active Positive movement no contractions no loss of fluids. Had normal level [address] Esparza. Will follow closely with Dr. Esparza. 01/11/25 <del>?</del> 28w 2d 101.321 kg 127/78 28 145 active Good movement. No contractions. No loss of fluids. No vaginal bleeding. Was admitted to [facility] for a week recently for kidney stones. Saw Dr. Pulliam. Had a stent placed and removed. 01/26/25 <del>?</del> 30w 3d 102.228 kg 127/87 147 active Good movement no contractions or vaginal bleeding. Patient thinks she passed her mucous plug and went to [place] last week and was closed thick and high. 02/12/25 <del>?</del> 32w 6d 103.532 kg 128/82 02/24/25 <del>?</del> 34w 4d 104.099 kg 127/84 WAYNE Calculator Estimated Delivery Date Method Current WG Current Estimate 04/03/25 Ultrasound #1 34w 4d Other Estimates 04/11/25 LMP (Uncertain) 33w 3d Expected Delivery Route/Plan 29-year-old -0-0-1 previous x 1 for repeat EDC 04/03/25 Consistent with Level II US Specific Issue/Plans 1. Previous for repeat 2. Hypothyroid secondary to partial thyroidectomy on medication 3. History of hyperparathyroidism status post removal of some of her parathyroid glands. Sees a specialist at [facility]. Had parathyroid removal surgery this . Parathyroid, calcium, phosphorous, thyroid numbers are normal at the beginning of this . 4. Chronic hypertension. On labetalol 200 mg p.o. twice daily at 14 weeks of on baby aspirin 5. Kidney stones with admission to [facility], kidney stone blasting and placement of the stent during this . The stent was removed. Notes Visit Date: 02/24/25 Last Updated by: Lashay Morel (OB Clinic)MD Unsure whether she is going to have a tubal ligation. She is asking her data analytics analyst. Had the flu shot and Tdap Had steroids already. Visit Date: 02/12/25 Last Updated by: Lashay Morel (OB Clinic)MD Sent patient to OB triage to rule out kidney stone. Check ultrasound, check renal ultrasound. Celestone given 919 and will repeat 02/13/2025 Reviewed 24-hour urine and is 354. Fasting glucose 113. No hemoglobin A1c drawn for some reason but ordered. Patient cannot tolerate a 1 hour glucose. Visit Date: 01/26/25 Last Updated by: Lashay Morel (OB Clinic)MD The patient states when she was admitted for kidney stones, they did a fibronectin and it was positive. She was not given steroids. This was greater than 2 weeks ago. Patient is still passing blackish looking stones. She is to follow-up with Dr. Pulliam about this. She is on 200 labetalol twice a day. Were going to schedule at 38 weeks secondary to chronic hypertension, parathyroid disease, multiple kidney stones and admissions to the hospital. Status post stent placement and removal. Status post parathyroid surgery during . Patient following with [facility]. Visit Date: 01/11/25 Last Updated by: Lashay Morel (OB Clinic)MD On 12/29, the pt had some type of parathyroidectomy and thyroid surgery in the [place] area. 12/31 through , she was admitted to [facility] for kidney stones ,lithotripsy, and stent placement. This was by Dr. Pulliam. She has since had her stent removed. I have no records on either surgery. Patient's blood pressure would go up and down according to her and they had to push some labetalol. They state her LFTs were high and wanted her to have repeat liver function test. Patient is being comanaged with Dr. Esparza. She is unsure whether she would like a tubal ligation with her . They are going to asked their data analytics analyst as they are [place]. I did tell the patient she is extremely high risk if she gets again. Visit Date: 12/11/24 Last Updated by: Lashay Morel (OB Clinic)MD Patient is having kidney pain. She has a history of kidney stones. She has a history of hyperparathyroidism. Dr. Esparza is going to have a Zoom call with both her box annealer and her parathyroid surgeon. Dr. Esparza's under the opinion that she should have surgery as hyperparathyroidism can cause increased calcium and problems with the . She is following closely with Dr. Esparza. She is also going to see her kidney doctor coming up because she has a history of kidney stones. Will prescribe [place]. She needs a repeat scheduled for 37 to 38 weeks. I ordered her glucose challenge test. Her blood pressure is good today on 300 of labetalol twice a day. She is also checking this at home. Office Procedures OBC Clinic LOC & Office Proc's Nursing/Assessment Patient Status: Established Patient OB Clinic Nursing Assessment: Medication Reconciliation, Update PMH in EMR and Vital Signs OB Clinic Coordination of Care: Complex Care and Chronic Disease 1-5, Consent,records obtained, informed consent, Education Simp Pt/Fam, Lab and Imaging orders, Results/Orders obtained and Staff clarify orders Special Needs: Heart tones Established Patient Charge Established Patient Point Assignment: 135 Established Patient Point Charge: EP Level 4 (120-155)
== END 2025-02-24 09:47 | disposition home or self-care (01) ==
LOC: HODSOBC 09:06
PROVIDERS: Supervising Provider Obstetrics & Gynecology; Visit Provider Obstetrics & Gynecology
DX: O09.293 Supervision of pregnancy with other poor reproductive or obstetric history, third trimester (principal); O34.219 Maternal care for unspecified type scar from previous cesarean delivery; O99.283 Endocrine, nutritional and metabolic diseases complicating pregnancy, third trimester; E89.0 Postprocedural hypothyroidism; O10.913 Unspecified pre-existing hypertension complicating pregnancy, third trimester; Z79.899 Other long term (current) drug therapy
CPT/HCPCS: 99214; G0463

== ENCOUNTER 2025-02-24 09:59 | Outpatient (CLI) | payer BC, SELFPAY ==
[2025-02-24] VITALS (8 sets, daily range): BP systolic 0–133; BP diastolic 0–86; PULSE 92–105; RESP 16–98; TEMP 36.7; O2SAT 98; BMI 40.7
--- NOTE | 2025-02-24 10:15 | XR_ITS ---
Examination: age Limited TECHNIQUE: Limited transabdominal sonographic images pelvis Date and time: February 24, 2025 1139 hours INDICATIONS: Diagnosis -induced hypertension today. FINDINGS: Viable intrauterine gestation Estimated weight 2643 g Cardiac motion 150 BPM IMPRESSION: Viable intrauterine gestation Estimated weight 2643 g Estimated gestational age 35 weeks 3 days
--- NOTE | 2025-02-24 10:16 | XR_ITS ---
Examination: Biophysical profile, ultrasound Date and time of exam: February 24, 2025, 1136 hours INDICATIONS: -induced hypertension today Technique: Multiple transabdominal sonographic images of the pelvis abdomen obtained. Attention is directed to the breathing movement, gross body movement, amniotic fluid volume and tone. Findings: Amniotic fluid index 22.8 cm Total biophysical profile is 8 of 8. breathing movement is 2. Gross body movement is 2. tone is 2. Qualitative amniotic fluid volume is 2 Impression: Biophysical profile is 8 of 8.
[2025-02-24 10:38] LABS: Collection Type, Urine Clean Catch
[2025-02-24 10:49] LABS: Bilirubin,Urine Negative (Negative); Blood,Urine Negative (Negative); Calcium Oxalate Crystals,Urine 2+; Clarity,Urine Clear (Clear/Hazy); Color,Urine Yellow (Lt Yel-Yel); Glucose, Urine Negative (Negative); Ketones,Urine Negative (Negative); Leukocyte Esterase,Urine Negative (Negative); Nitrite,Urine Negative (Negative); PH,Urine 5.5 (5.0-7.0); Protein,Urine Trace (Neg - Trace); RBC,Urine 4 /hpf (0-3); Specific Gravity,Urine 1.026 (1.001-1.035); Squamous Epithelial Cell,Urine 7 /hpf (0-5); Urobilinogen,Urine Negative mg/dL (0.0-1.0); WBC,Urine 1 /hpf (0-5)
[2025-02-24] MEDS: ACETAMINOPHEN 325 MG TABLET 650 MG PO (11:18)
== END 2025-02-24 12:10 | disposition home or self-care (01) ==
LOC: S4S1 10:00 → S4SX 10:01
PROVIDERS: Referring Provider Obstetrics & Gynecology; Visit Provider Obstetrics & Gynecology
DX: O26.893 Other specified pregnancy related conditions, third trimester (principal); Z3A.35 35 weeks gestation of pregnancy; R03.0 Elevated blood-pressure reading, without diagnosis of hypertension
CPT/HCPCS: 59025; 76815; 76819; 81001; A9270

== ENCOUNTER 2025-03-01 13:05 | Outpatient (AMB) | payer BC, OTHER, SELFPAY ==
--- NOTE | 2025-03-01 13:24 | OBCLNT_ITS ---
Vital Signs 03/01/25 13:25 Height 1.6 m Height Method Stated Weight 106.594 kg Weight Measurement Method Standing Scale BMI 41.6 BP 131/85 H Blood Pressure Source Automatic Cuff Blood Pressure Location Left Upper Arm Position Sitting Respiration 18 Pulse 94 Pulse Source Monitor Temp 98.2 F Temp Source Oral Pulse Oximetry (%) 99 Oxygen Delivery Method Room Air Allergies/Home Meds Allergies & Medications Allergies No Known Allergies Allergy (Verified 03/01/25 13:26) Medication Reconciliation levothyroxine 50 mcg tablet (Synthroid) 50 mcg PO QDAY 09/23/24 [History Confirmed 03/01/25] [id number] 120 mcg-dha 25 mg-herb no.293 66.7 mg chew tablet (Alive Premium ) 1 tab PO QDAY 09/23/24 [History Confirmed 03/01/25] labetalol 100 mg tablet 300 mg (3 x 100 mg) PO BID #180 tabs 11/09/24 [Rx Confirmed 03/01/25] Intake Visit Data Collection New Patient or Established: Established Patient (seen at [facility] within 3 years) Reason for Visit:: OBC Seen by Clinical Staff ONLY (RN/MA): No Page Makeup System Operator Required: No Do You Feel Safe at Home: Yes Authorities Contacted: N/A PCP or OBGYN visit in last 3 months: Yes Hx Now: Yes Are you currently on any form of Control: No Pain Present Currently: No Pain Scale Used: Ribeiro-Rowell/Numerical Pain scale:: 0 Smoking Status Smoking Status: Never smoker Questionnaires Covid-19 Vaccine Questionnaire Has patient been vacinated for Covid-19 Have you been vacinated for Covid-19: Yes PHQ-9 PHQ-2 Over the last 2 weeks, how often have you been bothered by any of the following problems? 1. Little interest or pleasure in doing things: not at all 2. Feeling down, depressed, or hopeless: not at all Total score: 0 PHQ-9 3. Trouble falling or staying asleep, or sleeping too much: Not at all 4. Feeling tired or having little energy: Not at all 5. Poor appetite or overeating: Not at all 6. Feeling bad about yourself - or that you are a failure or have let yourself or your family down: Not at all 7. Trouble concentrating on things, such as reading the newspaper or watching television: Not at all 8. Moving or speaking so slowly that other people could have noticed? - Or the opposite - being so fidgety or restless that you have been moving around a lot more than usual: not at all 9. Thoughts that you would be better off or of hurting yourself in some way: Not at all Total score: 0 If you checked off any problems, how difficult have these problems made it for you to do your work, take care of things at home, or get along with other people?: not difficult at all Source: Developed by Drs. Rafa Almaraz, Otilia Rea, Bello Jacques and colleagues, with an educational titi from [employer]. 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 She is on labetalol 200 twice daily for blood pressure. And states most of her blood pressures are in the normal range. She is off work on bedrest. She has not received an appointment for Dr. Esparza for maternal- medicine. She states she is called and this is getting authorized. Plus flutter. No vaginal bleeding or loss of fluids. Patient is still speaking with a quiet hoarse voice today. 10/28/24 -?-?-?-?-?-?-?-?-?-?-?-?- 17w 4d 100.868 kg 130/85 130/85 143 active Nausea vom iting better. Blood pressure better on labetalol. Patient states she is leaking. Went to [place] and did not get any answers. Sent to ER to ru le out ruptured membranes. Need AmniSure and vaginitis panel. 11/09/24 -?-?-?-?-?-?-?-?-?-?-?-?- 19w 2d 101.151 kg 138/85 19 143 active Refill labetalol. Increase to 300 twice daily. Has level 2 ultrasound next week with Dr. Esparza. Reports good movement no contractions no vaginal bleeding has follow-up with her parathyroid doctor coming up. 12/11/24 -?-?-?-?-?-?-?-?-?-?-?-?- 23w 6d 101.151 kg 118/81 25 156 active Positive movement no contractions no loss of fluids. Had normal level [address] Esparza. Will follow closely with Dr. Esparza. 01/11/25 -?-?-?-?-?-?-?-?-?-?-?-?- 28w 2d 101.321 kg 127/78 28 145 active Good movement. No contractions. No loss of fluids. No vaginal bleeding. Was admitted to [facility] for a week recently for kidney stones. Saw Dr. Pulliam. Had a stent placed and removed. 01/26/25 -?-?-?-?-?-?-?-?-?-?-?-?- 30w 3d 102.228 kg 127/87 147 active Good movement no contractions or vaginal bleeding. Patient thinks she passed her mucous plug and went to [place] last week and was closed thick and high. 02/12/25 -?-?-?-?-?-?-?-?-?-?-?-?- 32w 6d 103.532 kg 128/82 02/24/25 -?-?-?-?-?-?-?-?-?-?-?-?- 34w 4d 104.099 kg 127/84 03/01/25 -?-?-?-?-?-?-?-?-?-?-?-?- 35w 2d 106.594 kg 131/85 WAYNE Calculator Estimated Delivery Date Method Current WG Current Estimate 04/03/25 Ultrasound #1 35w 2d Other Estimates 04/11/25 LMP (Uncertain) 34w 1d Expected Delivery Route/Plan 29-year-old -0-0-1 previous x 1 for repeat EDC 04/03/25 Consistent with Level II US Specific Issue/Plans 1. Previous for repeat 2. Hypothyroid secondary to partial thyroidectomy on medication 3. History of hyperparathyroidism status post removal of some of her parathyroid glands. Sees a specialist at [facility]. Had parathyroid removal surgery this . Parathyroid, calcium, phosphorous, thyroid numbers are normal at the beginning of this . 4. Chronic hypertension. On labetalol 200 mg p.o. twice daily at 14 weeks of on baby aspirin 5. Kidney stones with admission to [facility], kidney stone blasting and placement of the stent during this . The stent was removed. 6. BMI 42 Notes Visit Date: 03/01/25 Last Updated by: Lashay Morel (OB Clinic)MD To labor and delivery for NST BPP Visit Date: 02/24/25 Last Updated by: Lashay Morel ([facility] Clinic)MD Unsure whether she is going to have a tubal ligation. She is asking her full stack software developer. Had the flu shot and Tdap Had steroids already. Visit Date: 02/12/25 Last Updated by: Lashay Morel (OB Clinic)MD Sent patient to OB triage to rule out kidney stone. Check ultrasound, check renal ultrasound. Celestone given 919 and will repeat 02/13/2025 Reviewed 24-hour urine and is 354. Fasting glucose 113. No hemoglobin A1c drawn for some reason but ordered. Patient cannot tolerate a 1 hour glucose. Visit Date: 01/26/25 Last Updated by: Lashay Morel (OB Clinic)MD The patient states when she was admitted for kidney stones, they did a fibronectin and it was positive. She was not given steroids. This was greater than 2 weeks ago. Patient is still passing blackish looking stones. She is to follow-up with Dr. Pulliam about this. She is on 200 labetalol twice a day. Were going to schedule at 38 weeks secondary to chronic hypertension, parathyroid disease, multiple kidney stones and admissions to the hospital. Status post stent placement and removal. Status post parathyroid surgery during . Patient following with M. Visit Date: 01/11/25 Last Updated by: Lashay Morel (OB Clinic)MD On 12/29, the pt had some type of parathyroidectomy and thyroid surgery in the [place] area. 12/31 through , she was admitted to [facility] for kidney stones ,lithotripsy, and stent placement. This was by Dr. Pulliam. She has since had her stent removed. I have no records on either surgery. Patient's bl ood pressure would go up and down according to her and they had to push some labetalol. They state her LFTs were high and wanted her to have repeat liver function test. Patient is being comanaged with Dr. Esparza. She is unsure whether she would like a tubal ligation with her . They are going to asked their full stack software developer as they are [place]. I did tell the patient she is extremely high risk if she gets again. Visit Date: 12/11/24 Last Updated by: Lashay Morel (OB Clinic)MD Patient is having kidney pain. She has a history of kidney stones. She has a history of hyperparathyroidism. Dr. Esparza is going to have a Zoom call with both her gas turbine powerplant mechanic helper and her parathyroid surgeon. Dr. Esparza's under the opinion that she should have surgery as hyperparathyroidism can cause increased calcium and problems with the . She is following closely with Dr. Esparza. She is also going to see her kidney doctor coming up because she has a history of kidney stones. Will prescribe [place]. She needs a repeat scheduled for 37 to 38 weeks. I ordered her glucose challenge test. Her blood pressure is good today on 300 of labetalol twice a day. She is also checking this at home. Office Procedures OBC Clinic LOC & Office Proc's Nursing/Assessment Patient Status: Established Patient OB Clinic Nursing Assessment: Medication Reconciliation, Update PMH in EMR and Vital Signs OB Clinic Coordination of Care: Education Complex Pt/Fam, Consent,records obtained, informed consent, Lab and Imaging orders, Results/Orders obtained and Staff clarify orders Special Needs: Heart tones Established Patient Charge Established Patient Point Assignment: 115 Established Patient Point Charge: Level 3 (80-115) Assessment & Plan Diagnosis / Problem List (1) Nephrolithiasis: Status: Acute (2) Chronic hypertension affecting : Status: Acute Plan: On labetolol 300 BID (3) Hypothyroidism affecting : Status: Acute Qualifiers: Trimester: second trimester Qualified Code(s): O99.282 - Endocrine, nutritional and metabolic diseases complicating , second trimester; E03.9 - Hypothyroidism, unspecified (4) Hyperparathyroidism: Status: Acute (5) : Status: Acute Qualifiers: Weeks of gestation: 35 weeks Qualified Code(s): Z3A.35 - 35 weeks gestation of
[2025-03-01 13:25] VITALS: BP 131/85; PULSE 94; RESP 18; TEMP 36.8; O2SAT 99; BMI 41.6
== END 2025-03-01 14:45 | disposition home or self-care (01) ==
LOC: HODSOBC 13:05
PROVIDERS: Supervising Provider Obstetrics & Gynecology; Visit Provider Obstetrics & Gynecology
DX: O09.893 Supervision of other high risk pregnancies, third trimester (principal); O10.913 Unspecified pre-existing hypertension complicating pregnancy, third trimester; O99.283 Endocrine, nutritional and metabolic diseases complicating pregnancy, third trimester; E89.0 Postprocedural hypothyroidism; E21.3 Hyperparathyroidism, unspecified; O99.891 Other specified diseases and conditions complicating pregnancy; N20.0 Calculus of kidney; Z3A.35 35 weeks gestation of pregnancy; O34.219 Maternal care for unspecified type scar from previous cesarean delivery; O09.293 Supervision of pregnancy with other poor reproductive or obstetric history, third trimester; Z90.89 Acquired absence of other organs; Z87.442 Personal history of urinary calculi; Z79.899 Other long term (current) drug therapy; Z79.890 Hormone replacement therapy
CPT/HCPCS: 99213; G0463

== ENCOUNTER 2025-03-01 14:59 | Outpatient (CLI) | payer BC, OTHER, SELFPAY ==
[2025-03-01 15:24] VITALS: BP 136/90; PULSE 90
--- NOTE | 2025-03-01 15:35 | XR_ITS ---
Examination: Biophysical profile, ultrasound Date and time of exam: March 01, 2025, 1551 INDICATIONS: -induced hypertension today Technique: Multiple transabdominal sonographic images of the pelvis abdomen obtained. Attention is directed to the breathing movement, gross body movement, amniotic fluid volume and tone. Findings: Amniotic fluid index 17.8 cm Total biophysical profile is 8 of 8. breathing movement is 2. Gross body movement is 2. tone is 2. Qualitative amniotic fluid volume is 2 Impression: Biophysical profile is 8 of 8.
[2025-03-01 15:36] VITALS: BP 136/90; PULSE 90; RESP 18; RESP 98; TEMP 36.8; BMI 41.5
[2025-03-01 15:41] VITALS: BP 138/83; PULSE 97
[2025-03-01 16:03] LABS: Collection Type, Urine Clean Catch
[2025-03-01 16:16] VITALS: BP 131/79; PULSE 99
[2025-03-01 16:35] LABS: Bilirubin,Urine Negative (Negative); Blood,Urine Negative (Negative); Clarity,Urine Turbid (Clear/Hazy); Color,Urine Yellow (Lt Yel-Yel); Culture Indicated,Urine Not Indicated; Glucose, Urine 1+ (Negative); Ketones,Urine 1+ (Negative); Leukocyte Esterase,Urine Positive (Negative); Nitrite,Urine Negative (Negative); PH,Urine 6.0 (5.0-7.0); Protein,Urine 1+ (Neg - Trace); RBC,Urine 4 /hpf (0-3); Specific Gravity,Urine 1.030 (1.001-1.035); Squamous Epithelial Cell,Urine 24 /hpf (0-5); Urobilinogen,Urine Negative mg/dL (0.0-1.0); WBC,Urine 8 /hpf (0-5)
== END 2025-03-01 17:00 | disposition home or self-care (01) ==
LOC: S4S1 15:02 → S4SX 15:03
PROVIDERS: Referring Provider Obstetrics & Gynecology; Visit Provider Obstetrics & Gynecology
DX: O10.913 Unspecified pre-existing hypertension complicating pregnancy, third trimester (principal); Z3A.00 Weeks of gestation of pregnancy not specified; O99.280 Endocrine, nutritional and metabolic diseases complicating pregnancy, unspecified trimester; E03.9 Hypothyroidism, unspecified
CPT/HCPCS: 59025; 76819; 81001

== ENCOUNTER 2025-03-17 09:12 | Outpatient (AMB) | payer BC, OTHER, SELFPAY ==
[2025-03-17 09:20] VITALS: BP 154/99; PULSE 97; RESP 18; TEMP 36.2; O2SAT 97; BMI 39.0
--- NOTE | 2025-03-17 09:21 | AMBOBPPN_ITS ---
Vital Signs 03/17/25 09:20 03/17/25 09:23 Height 1.6 m Height Method Stated Weight 100.017 kg Weight Measurement Method Standing Scale BMI 39.0 BP 154/99 H 154/99 H Blood Pressure Source Automatic Cuff Blood Pressure Location Left Upper Arm Position Sitting Respiration 18 18 Pulse 97 97 Pulse Source Monitor Temp 97.2 F 97.2 F Temp Source Oral Pulse Oximetry (%) 97 97 Oxygen Delivery Method Room Air Allergies/Home Meds Allergies & Medications Allergies No Known Allergies Allergy (Verified 03/22/25 08:35) Medication Reconciliation levothyroxine 50 mcg tablet (Synthroid) 50 mcg PO QDAY 09/23/24 [History Confirmed 03/22/25] wghrhknb-sol-bsmrv 120 mcg-dha 25 mg-herb no.293 66.7 mg chew tablet (Alive Premium ) 1 tab PO QDAY 09/23/24 [History Confirmed 03/22/25] labetalol 100 mg tablet 100 mg PO BID 03/01/25 [History Confirmed 03/22/25] cephalexin 500 mg capsule 500 mg PO Q6H #30 caps 03/17/25 [Rx Confirmed 03/22/25] labetalol 200 mg tablet 200 mg PO TID #90 tabs 03/22/25 [Rx] Intake Visit Data Collection New Patient or Established: Established Patient (seen at [facility] within 3 years) Reason for Visit:: POSTPAARTUM Seen by Clinical Staff ONLY (RN/MA): No Commercial Development Manager Required: No Do You Feel Safe at Home: Yes Authorities Contacted: N/A PCP or OBGYN visit in last 3 months: Yes Date of Last PCP or OBGYN visit: 03/01/25 Hx Now: Yes Are you currently on any form of Control: No Pain Present Currently: No Pain Scale Used: Ribeiro-Rowell/Numerical Pain scale:: 0 Smoking Status Smoking Status: Never smoker Immunizations Flu Vaccine in the Last 12 Months: No Flu Vaccine Exclusion Criteria: No Exclusion Criteria RN ORTHOPAEDICS: Past Medical History Past Medical History: Yes Hx Hypothyroidism (Status post partial thyroidectomy), No Hx Breast Cancer, No Hx Anemia, Yes Hx Renal Disease, No Hx Diabetes Mellitus Type 1, No Hx Diabetes Mellitus Type 2 and No Hx Polycystic Ovarian Syndrome Questionnaires Covid-19 Vaccine Questionnaire Has patient been vacinated for Covid-19 Have you been vacinated for Covid-19: Yes Social History Living Situation History Marital Status: Single Lives With: Spouse Housing: House Housing Other:: 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 turning 5 in 03/20 Tobacco History Smoking Status: Never smoker Second Hand Smoke Exposure: No Alcohol History Alcohol Intake: Never Domestic Abuse History Do You Feel Safe at Home: Yes EPDS - PP Depression Screening [place] Pospartum Depression Screen I have been able to laugh and see the funny side of things: (0) As much as I always could I have looked forward with enjoyment to things: (0) As much as I ever did I have blamed myself unnecessarily when things went wrong: (0) No, never I have been anxious or worried for no good reason: (0) No, not at all I have felt scared or panicky for no very good reason: (0) No, not at all Things have been getting on top of me: (0) No, I have been coping as well as ever I have been so unhappy that I have had difficulty sleeping: (0) No, not at all I have felt sad or miserable: (0) No, not at all I have been so unhappy that I have been crying: (0) No, never The thought of harming myself has occurred to me: (0) Never Total Score: EPDS Score: Referral is indicated for score of 9 or more, suicidal, or if provider believes patient is depressed regardless of score.: 0 EPDS completed yes Care OB Visit Log OB Flowsheet Initial Weight: Not Recorded Date -?-?-?-?-?-?-?-?-?-?-?-?- EGA Weight BP Alb Glu CTX Pres Fundal ht FHR Mov Dilation Station Effacement Hx Notes Visit Note 10/20/24 -?-?-?-?-?-?-?-?-?-?-?-?- 16w 3d 100.414 kg 116/72 155 active Patient needs a refill on Zofran. She is on labetalol 200 twice daily for blood pressure. And states most of her blood pressures are in the normal range. She is off work on bedrest. She has not received an appointment for Dr. Esparza for maternal- medicine. She states she is called and this is getting authorized. Plus flutter. No vaginal bleeding or loss of fluids. Patient is still speaking with a quiet hoarse voice today. 10/28/24 -?-?-?-?-?-?-?-?-?-?-?-?- 17w 4d 100.868 kg 130/85 130/85 143 active Nausea vom iting better. Blood pressure better on labetalol. Patient states she is leaking. Went to [place] and did not get any answers. Sent to ER to ru le out ruptured membranes. Need AmniSure and vaginitis panel. 11/09/24 -?-?-?-?-?-?-?-?-?-?-?-?- 19w 2d 101.151 kg 138/85 19 143 active Refill labetalol. Increase to 300 twice daily. Has level 2 ultrasound next week with Dr. Esparza. Reports good movement no contractions no vaginal bleeding has follow-up with her parathyroid doctor coming up. 12/11/24 -?-?-?-?-?-?-?-?-?-?-?-?- 23w 6d 101.151 kg 118/81 25 156 active Positive movement no contractions no loss of fluids. Had normal level [address] Esparza. Will follow closely with Dr. Esparza. 01/11/25 -?-?-?-?-?-?-?-?-?-?-?-?- 28w 2d 101.321 kg 127/78 28 145 active Good movement. No contractions. No loss of fluids. No vaginal bleeding. Was admitted to [facility] for a week recently for kidney stones. Saw Dr. Pulliam. Had a stent placed and removed. 01/26/25 -?-?-?-?-?-?-?-?-?-?-?-?- 30w 3d 102.228 kg 127/87 147 active Good movement no contractions or vaginal bleeding. Patient thinks she passed her mucous plug and went to [facility] last week and was closed thick and high. 02/12/25 -?-?-?-?-?-?-?-?-?-?-?-?- 32w 6d 103.532 kg 128/82 32 active Good movement no timeable contractions no vaginal bleeding no dysuria. Patient is having left-sided flank pain possible kidney stone. Over to OB triage. 02/24/25 -?-?-?-?-?-?-?-?-?-?-?-?- 34w 4d 104.099 kg 127/84 35 145 active Good movement. No contractions or loss of fluids. Blood pressure was high this morning she took an extra labetalol. To labor and delivery for nonstress test BPP JUDE weight. 03/01/25 -?-?-?-?-?-?-?-?-?-?-?-?- 35w 2d 106.594 kg 131/85 36 137 active Good movement no contractions or loss of fluids P atient almost went to [facility] with another kidney stone attack. She stayed home took [place] and push fluids and got passed it. Plan will be to perform a 03/12/2025. 03/17/25 -?-?-?-?-?-?-?-?-?-?-?-?- 37w 4d 100.017 kg 154/99 154/99 WAYNE Calculator Estimated Delivery Date Method Current WG Current Estimate 04/03/25 Ultrasound #1 38w 5d Other Estimates 04/11/25 LMP (Uncertain) 37w 4d Expected Delivery Route/Plan 29-year-old -0-0-1 previous x 1 for repeat EDC 04/03/25 Consistent with Level II US Specific Issue/Plans 1. Previous for repeat 2. Hypothyroid secondary to partial thyroidectomy on medication 3. History of hyperparathyroidism status post removal of some of her para thyroid glands. Sees a specialist at [facility]. Had parathyroid removal surgery this . Parathyroid, calcium, phosphorous, thyroid numbers are normal at the beginning of this . 4. Chronic hypertension. On labetalol 200 mg p.o. twice daily at 14 weeks of on baby aspirin 5. Kidney stones with admission to [facility], kidney stone blasting and placement of the stent during this . The stent was removed. 6. BMI 42 Notes Visit Date: 03/17/25 Last Updated by: Angie Forrester MD post today / POD #7 Preeclampsia with severe features / follow up for BP check and wound concerns Visit Date: 03/01/25 Last Updated by: Lashay Morel (OB Clinic)MD To labor and delivery for NST BPP Visit Date: 02/24/25 Last Updated by: Lashay Morel (OB Clinic)MD Unsure whether she is going to have a tubal ligation. She is asking her vessel captain. Had the flu shot and Tdap Had steroids already. Visit Date: 02/12/25 Last Updated by: Lashay Morel (OB Clinic)MD Sent patient to OB triage to rule out kidney stone. Check ultrasound, check renal ultrasound. Celestone given 919 and will repeat 02/13/2025 Reviewed 24-hour urine and is 354. Fasting glucose 113. No hemoglobin A1c drawn for some reason but ordered. Patient cannot tolerate a 1 hour glucose. Visit Date: 01/26/25 Last Updated by: Lashay Morel (OB Clinic)MD The patient states when she was admitted for kidney stones, they did a fibronectin and it was positive. She was not given steroids. This was greater than 2 weeks ago. Patient is still passing blackish looking stones. She is to follow-up with Dr. Pulliam about this. She is on 200 labetalol twice a day. Were going to schedule at 38 weeks secondary to chronic hype rtension, parathyroid disease, multiple kidney stones and admissions to the hospital. Status post stent placement and removal. Status post parathyroid surgery during . Patient following with [facility]. Visit Date: 01/11/25 Last Updated by: Lashay Morel (OB Clinic)MD On 12/29, the pt had some type of parathyroidectomy and thyroid surgery in the [place] area. 12/31 through , she was admitted to [facility] for kidney stones ,lithotripsy, and stent placement. This was by Dr. Pulliam. She has since had her stent removed. I have no records on either surgery. Patient's blood pressure would go up and down according to her and they had to push some labetalol. They state her LFTs were high and wanted her to have repeat liver function test. Patient is being comanaged with Dr. Esparza. She is unsure whether she would like a tubal ligation with her . They are going to asked their vessel captain as they are [employer]. I did tell the patient she is extremely high risk if she gets again. Visit Date: 12/11/24 Last Updated by: Lashay Morel (OB Clinic)MD Patient is having kidney pain. She has a history of kidney stones. She has a history of hyperparathyroidism. Dr. Esparza is going to have a Zoom call with both her trap setter and her parathyroid surgeon. Dr. Esparza's under the opinion that she should have surgery as hyperparathyroidism can cause increased calcium and problems with the . She is following closely with Dr. Esparza. She is also going to see her kidney doctor coming up because she has a history of kidney stones. Will prescribe [place]. She needs a repeat scheduled for 37 to 38 weeks. I ordered her glucose challenge test. Her blood pressure is good today on 300 of labetalol twice a day. She is also checking this at home. HPI Interval History: Patient had pre eclampsia and was at [facility] and had a C section there on 03/10/2025 and was on Magnesium sulphate She is currently on labetalol 100 mgm po BID and taking levothyroxine also Her headache comes and goes and she notices it is with elevated BP as she moniors it at home . She does not wish to go to ED / she also notices that there is an odor on her surgery site and I did inspect the surgical wound site and there is no erythema or discharge , but there is an odor Patient is reliable and will go home , take tylenol, increase Labetalol to 200 mgm po BID and also start keflex po and follow up on Saturday . If headache persistes and if BP stays above 155/100 , she will go to ED denies epigastric pain or blurry vision. Was or delivery considered high risk: Yes Delivery type: Gestational age at delivery (weeks): 36.4 Delivery date: 03/10/25 Delivering provider: at [facility] Delivery complications: Yes Delivery complications comment: Patient had severe pre eclampsia and was on magnesium sulphate seizure prophylaxis Is patient : Yes Is patient sexually active: No Contraception planned: undecided Review of Systems Review of Systems ROS limited to current RN ORTHOPAEDICS complaints: Yes Narrative Review of Systems: Reviewed all 14 point review of systems and all is negative except as noted/ headache off and on and no fever or heavy bleeding . no blurry vision or chest pain or SOB Exam Narrative Physical exam: alert x3 chest clear CVS RRR NO Thyromegaly Uterus is nontender Uterus is firm senior living between symphysis pubis and umblicus Bowel sounds present Abdomen soft no hernias noted/no CVAT Incision CDI No drainage/ but there is odor Appropriately tender No calf tenderness Edema 2plus and reflexes are 2 plus Office Procedures OBC Clinic LOC & Office Proc's Nursing/Assessment Patient Status: Established Patient OB Clinic Nursing Assessment: Medication Reconciliation, Update PMH in EMR and Vital Signs OB Clinic Coordination of Care: Consent,records obtained, informed consent, Education Simp Pt/Fam, Lab and Imaging orders, Results/Orders obtained and Staff clarify orders Special Needs: Heart tones Established Patient Charge Established Patient Point Assignment: 110 Established Patient Point Charge: EP Level 3 (80-115) Assessment & Plan Diagnosis / Problem List (1) Hyperemesis affecting , antepartum: Status: Acute (2) Postoperative wound seroma: Status: Acute (3) Chronic hypertension affecting : Status: Acute Plan increase Labetalol to 200 mgm po BID and continue to check BP at home If elevated BP persists and headache to go to ED Start keflex for wound odor and wound care disussed and follow p on Saturday Care Reviewed delivery summary and any complications: Yes Uterus involuted to: appropriate Screened for depression: No Depression counseling provided: Yes Discussed family planning & contraception: No Contraception planned: undecided Additional follow up plans: follow up on Saturday Follow up: BP check and other (wound check ) Additional counseling & anticipatory guidance provided: preclampsia precautions wound care
[2025-03-17 09:23] VITALS: BP 154/99; PULSE 97; RESP 18; TEMP 36.2; O2SAT 97
== END 2025-03-17 09:29 | disposition home or self-care (01) ==
LOC: HODSOBC 09:12
PROVIDERS: Supervising Provider Obstetrics & Gynecology; Visit Provider Obstetrics & Gynecology
DX: Z39.2 Encounter for routine postpartum follow-up (principal); O90.2 Hematoma of obstetric wound; O10.93 Unspecified pre-existing hypertension complicating the puerperium; Z79.899 Other long term (current) drug therapy
CPT/HCPCS: 99213; G0463

== ENCOUNTER → 2025-03-29 09:06 | Outpatient (AMB) | payer BC, OTHER, SELFPAY ==
[2025-03-29 09:20] VITALS: BP 134/86; PULSE 101; RESP 20; TEMP 36.7; O2SAT 98; BMI 38.1
--- NOTE | 2025-03-29 09:20 | AMBOBPPN_ITS ---
Vital Signs 03/29/25 09:20 Height 1.6 m Height Method Stated Weight 97.692 kg Weight Measurement Method Standing Scale BMI 38.1 BP 134/86 H Blood Pressure Source Automatic Cuff Blood Pressure Location Left Upper Arm Position Sitting Respiration 20 Pulse 101 H Pulse Source Monitor Temp 98.1 F Temp Source Oral Pulse Oximetry (%) 98 Oxygen Delivery Method Room Air Allergies/Home Meds Allergies & Medications Allergies No Known Allergies Allergy (Verified 03/29/25 09:21) Medication Reconciliation levothyroxine 50 mcg tablet (Synthroid) 50 mcg PO QDAY 09/23/24 [History Confirmed 03/29/25] qedwdime-prq-rrqnw 120 mcg-dha 25 mg-herb no.293 66.7 mg chew tablet (Alive Premium ) 1 tab PO QDAY 09/23/24 [History Confirmed 03/29/25] labetalol 100 mg tablet 100 mg PO BID 03/01/25 [History Confirmed 03/29/25] cephalexin 500 mg capsule 500 mg PO Q6H #30 caps 03/17/25 [Rx Confirmed 03/29/25] labetalol 200 mg tablet 200 mg PO TID #90 tabs 03/22/25 [Rx Confirmed 03/29/25] Intake Visit Data Collection New Patient or Established: Established Patient (seen at [facility] within 3 years) Reason for Visit:: Consent obtained for Telemed Visit: Yes Seen by Clinical Staff ONLY (RN/MA): No Farm Machine Tender Required: No Do You Feel Safe at Home: Yes Authorities Contacted: N/A PCP or OBGYN visit in last 3 months: Yes Hx Now: No Are you currently on any form of Control: No Pain Present Currently: No Pain Scale Used: Ribeiro-Rowell/Numerical Pain scale:: 0 Smoking Status Smoking Status: Never smoker Immunizations Flu Vaccine in the Last 12 Months: Yes Flu Vaccine Exclusion Criteria: Already Received For Telemed visit only Telemed Video/Phone Visit: Yes Verbal consent obtained for Telemed visit?: Yes Verbal Consent witness name: JESUS [place] TAFE TEACHER: Past Medical History Past Medical History: Yes Hx Hypothyroidism (Status post partial thyroidectomy), No Hx Breast Cancer, No Hx Anemia, Yes Hx Renal Disease, No Hx Diabetes Mellitus Type 1, No Hx Diabetes Mellitus Type 2 and No Hx Polycystic Ovarian Syndrome Questionnaires Covid-19 Vaccine Questionnaire Has patient been vacinated for Covid-19 Have you been vacinated for Covid-19: Yes Social History Living Situation History Lives With: Spouse Housing: House Housing Other:: 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 turning 5 in 03/20 Tobacco History Smoking Status: Never smoker Second Hand Smoke Exposure: No Alcohol History Alcohol Intake: Never Domestic Abuse History Do You Feel Safe at Home: Yes EPDS - PP Depression Screening [place] Pospartum Depression Screen I have been able to laugh and see the funny side of things: (0) As much as I always could I have looked forward with enjoyment to things: (0) As much as I ever did I have blamed myself unnecessarily when things went wrong: (0) No, never I have been anxious or worried for no good reason: (0) No, not at all I have felt scared or panicky for no very good reason: (0) No, not at all Things have been getting on top of me: (0) No, I have been coping as well as ever I have been so unhappy that I have had difficulty sleeping: (0) No, not at all I have felt sad or miserable: (0) No, not at all I have been so unhappy that I have been crying: (0) No, never The thought of harming myself has occurred to me: (0) Never EPDS completed yes Care OB Visit Log OB Flowsheet Initial Weight: Not Recorded Date -?-?-?-?-?-?-?-?-?-?-?-?- EGA Weight BP Alb Glu CTX Pres Fundal ht FHR Mov Dilation Station Effacement Hx Notes Visit Note 10/20/24 -?-?-?-?-?-?-?-?-?-?-?-?- 16w 3d 100.414 kg 116/72 155 active Patient needs a refill on Zofran. She is on labetalol 200 twice daily for blood pressure. And states most of her blood pressures are in the normal range. She is off work on bedrest. She has not received an appointment for Dr. Esparza for maternal- medicine. She states she is called and this is getting authorized. Plus flutter. No vaginal bleeding or loss of fluids. Patient is still speaking with a quiet hoarse voice today. 10/28/24 -?-?-?-?-?-?-?--?-?-?-?-?- 17w 4d 100.868 kg 130/85 130/85 143 active Nausea vom iting better. Blood pressure better on labetalol. Patient states she is leaking. Went to [place] and did not get any answers. Sent to ER to ru le out ruptured membranes. Need AmniSure and vaginitis panel. 11/09/24 -?-?-?-?-?-?-?-?-?-?-?-?- 19w 2d 101.151 kg 138/85 19 143 active Refill labetalol. Increase to 300 twice daily. Has level 2 ultrasound next week with Dr. Esparza. Reports good movement no contractions no vaginal bleeding has follow-up with her parathyroid doctor coming up. 12/11/24 -?-?-?-?-?-?-?-?-?-?-?-?- 23w 6d 101.151 kg 118/81 25 156 active Positive movement no contractions no loss of fluids. Had normal level [address] Esparza. Will follow closely with Dr. Esparza. 01/11/25 -?-?-?-?-?-?-?-?-?-?-?-?- 28w 2d 101.321 kg 127/78 28 145 active Good movement. No contractions. No loss of fluids. No vaginal bleeding. Was admitted to [facility] for a week recently for kidney stones. Saw Dr. Pulliam. Had a stent placed and removed. 01/26/25 -?-?-?-?-?-?-?-?-?-?-?-?- 30w 3d 102.228 kg 127/87 147 active Good movement no contractions or vaginal bleeding. Patient thinks she passed her mucous plug and went to [place] last week and was closed thick and high. 02/12/25 -?-?-?-?-?-?-?-?-?-?-?-?- 32w 6d 103.532 kg 128/82 02/24/25 -?-?-?-?-?-?-?-?-?-?-?-?- 34w 4d 104.099 kg 127/84 03/01/25 -?-?-?-?-?-?-?-?-?-?-?-?- 35w 2d 106.594 kg 131/85 03/17/25 -?-?-?-?-?-?-?-?-?-?-?-?- 37w 4d 100.017 kg 154/99 154/99 WAYNE Calculator Estimated Delivery Date Method Current WG Current Estimate 04/03/25 Ultrasound #1 39w 2d Other Estimates 04/11/25 LMP (Uncertain) 38w 1d Expected Delivery Route/Plan 29-year-old -0-0-1 previous x 1 for repeat EDC 04/03/25 Consistent with Level II US Specific Issue/Plans 1. Previous for repeat 2. Hypothyroid secondary to partial thyroidectomy on medication 3. History of hyperparathyroidism status post removal of some of her parathyroid glands. Sees a specialist at [facility]. Had parathyroid removal surgery this . Parathyroid, calcium, phosphorous, thyroid numbers are normal at the beginning of this . 4. Chronic hypertension. On labetalol 200 mg p.o. twice daily at 14 weeks of on baby aspirin 5. Kidney stones with admission to [facility], kidney stone blasting and placement of the stent during this . The stent was removed. 6. BMI 42 Notes Visit Date: 03/17/25 Last Updated by: Angie Forrester MD post today / POD #7 Preeclampsia with severe features / follow up for BP check and wound concerns Visit Date: 03/01/25 Last Updated by: Lashay Morel (OB Clinic)MD To labor and delivery for NST BPP Visit Date: 02/24/25 Last Updated by: Lashay Morel (OB Clinic)MD Unsure whether she is going to have a tubal ligation. She is asking her pipeline integrity engineer. Had the flu shot and Tdap Had steroids already. Visit Date: 02/12/25 Last Updated by: Lashay Morel (OB Clinic)MD Sent patient to OB triage to rule out kidney stone. Check ultrasound, check renal ultrasound. Celestone given 919 and will repeat 02/13/2025 Reviewed 24-hour urine and is 354. Fasting glucose 113. No hemoglobin A1c drawn for some reason but ordered. Patient cannot tolerate a 1 hour glucose. Visit Date: 01/26/25 Last Updated by: Lashay Morel (OB Clinic)MD The patient states when she was admitted for kidney stones, they did a fibronectin and it was positive. She was not given steroids. This was greater than 2 weeks ago. Patient is still passing blackish looking stones. She is to follow-up with Dr. Pulliam about this. She is on 200 labetalol twice a day. Were going to schedule at 38 weeks secondary to chronic hypertension, parathyroid disease, multiple kidney stones and admissions to the hospital. Status post stent placement and removal. Status post parathyroid surgery during . Patient following with [facility]. Visit Date: 01/11/25 Last Updated by: Lashay Morel (OB Clinic)MD On 12/29, the pt had some type of parathyroidectomy and thyroid surgery in the [place] area. 12/31 through , she was admitted to [facility] for kidney stones ,lithotripsy, and stent placement. This was by Dr. Pulliam. She has since had her stent removed. I have no records on either surgery. Patient's blood pressure would go up and down according to her and they had to push some labetalol. They state her LFTs were high and wanted her to have repeat liver function test. Patient is being comanaged with Dr. Esparza. She is unsure whether she would like a tubal ligation with her . They are going to asked their pipeline integrity engineer as they are Confucianist. I did tell the patient she is extremely high risk if she gets again. Visit Date: 12/11/24 Last Updated by: Lashay Morel (OB Clinic)MD Patient is having kidney pain. She has a history of kidney stones. She has a history of hyperparathyroidism. Dr. Esparza is going to have a Zoom call with both her executive chairman of the board and her parathyroid surgeon. Dr. Esparza's under the opinion that she should have surgery as hyperparathyroidism can cause increased calcium and problems with the . She is following closely with Dr. Esparza. She is also going to see her kidney doctor coming up because she has a history of kidney stones. Will prescribe [place]. She needs a repeat scheduled for 37 to 38 weeks. I ordered her glucose challenge test. Her blood pressure is good today on 300 of labetalol twice a day. She is also checking this at home. Office Procedures OBC Clinic LOC & Office Proc's Nursing/Assessment Patient Status: Established Patient OB Clinic Nursing Assessment: Medication Reconciliation, Update PMH in EMR and Vital Signs OB Clinic Coordination of Care: Complex Care and Chronic Disease 1-5, Consent,records obtained, informed consent, Education Simp Pt/Fam, Lab and Imaging orders, Results/Orders obtained and Staff clarify orders Established Patient Charge Established Patient Point Assignment: 105 Telehealth If patient is seen using Teleconference methods, complete New/Est section, but DO NOT chuck points only chuck the correct Telemed visit type Telemed Phone/Video with patient at home & ,PA,INDUSTRIAL GAS SERVICER: Yes
== END ==
PROVIDERS: Supervising Provider Obstetrics & Gynecology; Visit Provider Obstetrics & Gynecology
DX: Z39.2 Encounter for routine postpartum follow-up (principal)
CPT/HCPCS: 99212; 99213; G0463